=== PATIENT | female | born 1965 | race Caucasian/White ===

== ENCOUNTER 2016-06-10 11:31 | Emergency (ER) | payer MEDICARE, OTHER ==
[~2016-06-10] VITALS: Ht 167.6 cm; Wt 96.0 kg
[~2016-06-10 11:31] MED LIST: ALPR1TAB3 PO; ATEN50TA PO; BUSP30TA PO; CYCL1TAB29 PO; FLUT50SP NASAL; FOLI1TAB4 PO; GABA400C5 PO; HYDR-3516 PO; METH750T; MUPI2OIN; OMEP20CA2 PO; PARO40TA2 PO; TRAZ50TA12 PO; [UNRECOGNIZED DRUG - CODE]
[2016-06-10 11:44] VITALS: PULSE 94; RESP 16; TEMP 99; O2SAT 97
[2016-06-10 12:05] VITALS: BP 126/90
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
--- NOTE | 2016-06-10 12:30 | RADHPO ---
EXAM DATE/TIME: 06/10/2016 12:22 [facility] COMPARISON: KNEE LEFT COMPLETE (4VWS), June 16, 2015, 8:55. INDICATIONS : Left knee pain with no known injury & patient had just had a steriod injection to left knee yesterday . MEDICAL HISTORY : Hypertension. Emphysema. Gastroesophageal reflux disease. Cervical cancer. Arthritis. COPD. Alice l valve prolapse. Tachycardia. SURGICAL HISTORY : Appendectomy. Cholecystectomy. Hysterectomy. Right knee. Open lung biopsy. ENCOUNTER: Initial ACUITY: 2 days PAIN SCORE: 10/10 LOCATION: Left knee FINDINGS: Four view examination of the left knee demonstrates a bony fragment seen posteriorly in the region of the lateral tibial plateau of uncertain etiology. No other fractures are seen. No effusion. Bony mi neralization is normal. CONCLUSION: Mild osteoarthritis with bony fragment seen posteriorly along the lateral tibial plateau. This could be related to fracture of indeterminate age but likely old given no joint effusion. Otf Feng MD on June 10, 2016 at 12:26 Board Certified Radiologist. This report was verified electronically.
[2016-06-10 13:05] VITALS: BP 113/76; PULSE 96; RESP 20; O2SAT 96
--- NOTE | 2016-06-10 13:09 | RADHPO ---
EXAM DATE/TIME: 06/10/2016 12:45 [facility] COMPARISON: US LEG LEFT VENOUS DOPPLER, July 07, 2015, 9:22. INDICATIONS : Left leg pain. MEDICAL HISTORY : Chronic obstructive pulmonary disease. Hypertension. Gastroesophageal reflux disease. Emphysema. S arcoidosis. Arthritis. Cervical cancer. SURGICAL HISTORY : Cholecystectomy. Appendectomy. Total knee replacement, right. Hysterectomy. ENCOUNTER: Initial ACUITY: 4 - 6 days PAIN SCORE: 4/10 LOCATION: Left knee. TECHNIQUE: Venous ultrasound of the leg was performed from the inguinal ligament to the proximal calf. Real-geoffrey e, color Doppler and spectral tracing, compression and augmentation techniques were used. FINDINGS: There is normal compressibility of the deep venous system from the inguinal region to the proximal ca lf. No echogenic clot is seen in the lumen of the common femoral, femoral, popliteal, and posterior tibial veins. There is a normal response of the venous system to proximal and distal augmentation an d respiration. CONCLUSION: No DVT identified within the left lower extremity. Herman Rutledge MD on June 10, 2016 at 13:07 Board Certified Radiologist. This report was verified electronically.
[2016-06-10] MEDS ORDERED: IBUPROFEN 600 MG TAB PO ONE (13:15)
[2016-06-10] MEDS ORDERED: DOXY100C PO (13:46)
[2016-06-10] MEDS ORDERED: DOXYCYCLINE HYCLATE 100 MG TAB PO ONE (14:00)
[2016-06-10] MEDS ORDERED: DOXYCYCLINE HYCLATE 100 MG CAP PO ONE (14:00)
== END 2016-06-10 14:31 | disposition home or self-care (01) ==
LOC: PHED 11:31
DX: M25.562 Pain in left knee (principal); L03.116 Cellulitis of left lower limb; M17.12 Unilateral primary osteoarthritis, left knee; M79.605 Pain in left leg; I10 Essential (primary) hypertension; F17.200 Nicotine dependence, unspecified, uncomplicated
CPT/HCPCS: 73564; 93971

== ENCOUNTER 2016-11-12 14:03 | Emergency (ER) | payer MEDICARE, OTHER ==
[~2016-11-12] VITALS: Ht 167.6 cm; Wt 99.3 kg
[~2016-11-12 14:03] MED LIST changes: -FOLI1TAB4 PO; +FOLI400T PO; -METH750T
[2016-11-12 14:07] VITALS: BP 120/87; PULSE 92; RESP 16; TEMP 98.4; O2SAT 95
[2016-11-12] MEDS ORDERED: SODIUM CHLOR 0.9% 1000 ML INJ 1,000 ML IV ONE (14:31)
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
[2016-11-12] MEDS ORDERED: ONDANSETRON HCL 4 MG/2 ML VIAL IV PUSH ONE (14:45)
[2016-11-12] MEDS ORDERED: HYDROmorphone HCL PF 1 MG/ML VIAL IV PUSH ONE (14:45)
[2016-11-12 15:10] LABS: AUTOMATED NEUTROPHIL # 5.5 TH/MM3 (1.8-7.7); BASOPHIL # 0.1 TH/MM3 (0-0.2); BASOPHIL % 1.5 % (0.0-2.0); EOSINOPHIL # 0.2 TH/MM3 (0-0.4); EOSINOPHIL % 2.4 % (0.0-4.0); HEMATOCRIT 41.5 % (35.0-46.0); HEMO FLAGS DIFF FINAL; LYMPH % 19.1 % (9.0-44.0); LYMPHOCYTE # 1.5 TH/MM3 (1.0-4.8); MEAN CELL VOLUME 105.2 FL (80.0-100.0); MEAN CORPUSCULAR HGB CONC 33.3 % (32.0-36.0); MONO % 6.5 % (0.0-8.0); NEUT % 70.5 % (16.0-70.0); PLATELET COUNT 268 TH/MM3 (150-450); RED BLOOD COUNT 3.94 MIL/MM3 (4.00-5.30); RED CELL DISTRIBUTION WIDTH 15.6 % (11.6-17.2); WHITE BLOOD COUNT 7.8 TH/MM3 (4.0-11.0)
[2016-11-12 15:20] LABS: CHLORIDE 105 MEQ/L (98-107); SODIUM (NA) 141 MEQ/L (136-145)
[2016-11-12 15:25] LABS: POTASSIUM 5.6 MEQ/L (3.5-5.1)
[2016-11-12 15:26] VITALS: O2SAT 97
[2016-11-12 15:27] LABS: ANION GAP 4 MEQ/L (5-15); BICARBONATE 32.5 MEQ/L (21.0-32.0); BLOOD UREA NITROGEN 9 MG/DL (7-18)
[2016-11-12 15:29] LABS: ALT (GPT) 70 U/L (10-53)
[2016-11-12 15:30] LABS: AST (GOT) 62 U/L (15-37); GLOMERULAR FILTRATION RATE 82 ML/MIN (>89)
[2016-11-12 15:31] LABS: TOTAL BILIRUBIN ADULT 0.4 MG/DL (0.2-1.0)
[2016-11-12 15:31] LABS: APTT (PATIENT) 23.9 SEC (24.3-30.1); INTERNATIONAL NORMALIZED RATIO 0.9 RATIO; PROTHROMBIN TIME - PATIENT 9.9 SEC (9.8-11.6)
[2016-11-12 15:32] LABS: ALKALINE PHOSPHATASE 117 U/L (45-117)
[2016-11-12] MEDS ORDERED: diphenhydrAMINE HCL 50 MG/ML VIAL IV PUSH ONE (16:00)
[2016-11-12] MEDS ORDERED: methylPREDNISolone SOD SUCC 125 MG/2 ML VIAL IV PUSH ONE (16:00)
[2016-11-12 16:39] VITALS: BP 101/70; PULSE 74; RESP 18; O2SAT 98
[2016-11-12] MEDS ORDERED: MEDR4PAK PO (17:01)
[2016-11-12] MEDS ORDERED: BENA25TA6 PO (17:01)
== END 2016-11-12 17:10 | disposition home or self-care (01) ==
LOC: PHED 14:03
DX: R21 Rash and other nonspecific skin eruption (principal); L40.50 Arthropathic psoriasis, unspecified; J44.9 Chronic obstructive pulmonary disease, unspecified; I10 Essential (primary) hypertension; E11.9 Type 2 diabetes mellitus without complications; K21.9 Gastro-esophageal reflux disease without esophagitis
CPT/HCPCS: 80053; 83605; 84132; 85025; 85610; 85730; 87040; 96361; 96374; 96375; 99284; J1170; J1200; J2405; J2930; J7030

== ENCOUNTER 2016-12-11 09:56 | Emergency (ER) | payer MEDICARE, MEDICAID ==
[~2016-12-11] VITALS: Ht 167.6 cm; Wt 98.0 kg
[~2016-12-11 09:56] MED LIST changes: +BENA25TA6 PO; +MEDR4PAK PO
[2016-12-11 10:00] VITALS: BP 131/65; PULSE 84; RESP 16; TEMP 98.4; O2SAT 98
[2016-12-11] MEDS ORDERED: SODIUM CHLORIDE 0.9% FLUSH 5 ML FLUSH IV FLUSH PRN (10:30)
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
[2016-12-11 10:35] VITALS: O2SAT 93
[2016-12-11 10:38] LABS: AUTOMATED NEUTROPHIL # 6.1 TH/MM3 (1.8-7.7); BASOPHIL # 0.1 TH/MM3 (0-0.2); BASOPHIL % 1.4 % (0.0-2.0); EOSINOPHIL # 0.1 TH/MM3 (0-0.4); EOSINOPHIL % 1.6 % (0.0-4.0); HEMATOCRIT 40.3 % (35.0-46.0); HEMO FLAGS DIFF FINAL; LYMPHOCYTE # 1.1 TH/MM3 (1.0-4.8); MEAN CELL VOLUME 104.6 FL (80.0-100.0); MEAN CORPUSCULAR HEMOGLOBIN 34.6 PG (27.0-34.0); MEAN CORPUSCULAR HGB CONC 33.1 % (32.0-36.0); MONO % 8.8 % (0.0-8.0); NEUT % 74.2 % (16.0-70.0); PLATELET COUNT 292 TH/MM3 (150-450); RED BLOOD COUNT 3.85 MIL/MM3 (4.00-5.30); RED CELL DISTRIBUTION WIDTH 15.1 % (11.6-17.2); WHITE BLOOD COUNT 8.1 TH/MM3 (4.0-11.0)
[2016-12-11 10:57] LABS: CHLORIDE 109 MEQ/L (98-107); POTASSIUM 4.3 MEQ/L (3.5-5.1); SODIUM (NA) 141 MEQ/L (136-145)
[2016-12-11 11:01] LABS: ANION GAP 6 MEQ/L (5-15); BICARBONATE 26.2 MEQ/L (21.0-32.0); BLOOD UREA NITROGEN 9 MG/DL (7-18)
[2016-12-11 11:04] LABS: GLOMERULAR FILTRATION RATE 95 ML/MIN (>89)
--- NOTE | 2016-12-11 11:23 | RADRPT ---
EXAM DATE/TIME: 12/11/2016 11:03 [facility] COMPARISON: CT PULMONARY ANGIOGRAM, June 06, 2015, 16:26. INDICATIONS : Altered mental status. Frequent falls. RADIATION DOSE: 39.89 CTDIvol (mGy) MEDICAL HISTORY : Diabetes mellitus type 2. Hypertension. Chronic obstructive pulmonary disease. SURGICAL HISTORY : None. ENCOUNTER: Initial ACUITY: 1 week PAIN SCALE: 10/10 LOCATION: Bilateral cranial TECHNIQUE: Multiple contiguous axial images were obtained of the head. Using automated exposure control and adj ustment of the mA and/or kV according to patient size, radiation dose was kept as low as reasonably a chievable to obtain optimal diagnostic quality images. DICOM format image data is available electro nically for review and comparison. FINDINGS: CEREBRUM: The ventricles are normal for age. No evidence of midline shift, mass lesion, hemorrhage or acute in farction. No extra-axial fluid collections are seen. POSTERIOR FOSSA: The cerebellum and brainstem are intact. The 4th ventricle is midline. The cerebellopontine angle i s unremarkable. EXTRACRANIAL: The visualized portion of the orbits is intact. SKULL: The calvaria is intact. No evidence of skull fracture. CONCLUSION: No acute intracranial abnormality identified Herman Rutledge MD on December 11, 2016 at 11:20 Board Certified Radiologist. This report was verified electronically.
[2016-12-11 11:27] VITALS: BP 106/73; PULSE 83; RESP 22; O2SAT 91
[2016-12-11 11:29] LABS: ALCOHOL LESS THAN 3 MG/DL (0-5)
[2016-12-11 11:49] LABS: BLOOD, URINE NEG (NEG); GLUCOSE,URINE NEG (NEG); KETONE, URINE NEG (NEG); NITRITE,URINE NEG (NEG); PH, URINE 5.5 (5.0-8.5)
[2016-12-11 11:55] LABS: METHOD OF COLLECTION CATH
[2016-12-11 11:56] LABS: COMMENT (UR) CULT NOT INDICATED; CULTURE IF INDICATED CULT NOT INDICATED; SQUAMOUS EPITHELIAL CELL URINE 0-5 /hpf (0-5); URINE COLOR YELLOW (YELLW/STRAW); WBC, URINE 0-2 /hpf (0-5)
[2016-12-11 12:17] VITALS: BP 105/78; PULSE 77; RESP 20; O2SAT 91
[2016-12-11] MEDS ORDERED: TYLETAB34 PO (12:44)
== END 2016-12-11 13:02 | disposition home or self-care (01) ==
LOC: PHED 09:56
DX: R41.82 Altered mental status, unspecified (principal); E11.9 Type 2 diabetes mellitus without complications; I10 Essential (primary) hypertension; F17.200 Nicotine dependence, unspecified, uncomplicated; Z91.81 History of falling; Z79.899 Other long term (current) drug therapy; Z87.39 Personal history of other diseases of the musculoskeletal system and connective tissue; Z86.59 Personal history of other mental and behavioral disorders; Z86.79 Personal history of other diseases of the circulatory system; Z85.41 Personal history of malignant neoplasm of cervix uteri; Z87.09 Personal history of other diseases of the respiratory system; Z87.19 Personal history of other diseases of the digestive system
CPT/HCPCS: 70450; 80048; 80307; 81001; 84443; 85025; 99285; P9612

== ENCOUNTER 2017-02-02 14:49 | Emergency (ER) | payer MEDICARE, OTHER ==
[~2017-02-02] VITALS: Ht 167.6 cm; Wt 102.0 kg
[~2017-02-02 14:49] MED LIST changes: -MEDR4PAK PO; -MUPI2OIN; +TYLETAB34 PO
[2017-02-02 15:03] VITALS: BP 131/60; PULSE 104; RESP 18; TEMP 99.3; O2SAT 96
[2017-02-02] MEDS ORDERED: SOMA250T PO (15:31)
[2017-02-02] MEDS ORDERED: IBUPROFEN 600 MG TAB PO ONE (16:00)
--- NOTE | 2017-02-02 16:16 | RADRPT ---
EXAM DATE/TIME: 02/02/2017 15:44 [facility] COMPARISON: CHEST PA & LAT, June 18, 2015, 10:02. CHEST SINGLE AP, June 10, 2015, 17:36. INDICATIONS : Chest pain, short of breath, and cough for several days. Patient fell 3 days ago. MEDICAL HISTORY : Diabetes mellitus type 2. Hypertension. Chronic obstructive pulmonary disease. Chemotherapy. SURGICAL HISTORY : Thoracic fusion. ENCOUNTER: Initial ACUITY: 3 days PAIN SCORE: 6/10 LOCATION: Bilateral chest FINDINGS: Lung bases are hypoaerated. Some minimal atelectasis seen in the left. There is no evidence of consol idating airspace disease. Heart and mediastinal structures are stable. Thoracic fusion rods are in stable position. CONCLUSION: Basilar hypoaeration with mild airspace disease characteristic of atelectasis. No evidence of acute consolidating air space disease. Keven Joiner MD on February 02, 2017 at 16:13 Board Certified Radiologist. This report was verified electronically.
[2017-02-02] MEDS ORDERED: TRAM50TA PO (16:44)
--- NOTE | 2017-02-02 16:44 | RADRPT ---
EXAM DATE/TIME: 02/02/2017 15:44 [facility] COMPARISON: No previous studies available for comparison. INDICATIONS : Right forearm pain since falling 3 days ago. MEDICAL HISTORY : Diabetes mellitus type 2. Hypertension. Chronic obstructive pulmonary disease. Chemotherapy. SURGICAL HISTORY : ENCOUNTER: Initial ACUITY: 3 days PAIN SCORE: 6/10 LOCATION: Right posterior forearm. FINDINGS: Two view examination of the right forearm demonstrates no evidence of fracture or dislocation. Bony mineralization is normal. The soft tissue structures are intact. CONCLUSION: No evidence of acute fracture. Keven Joiner MD on February 02, 2017 at 16:42 Board Certified Radiologist. This report was verified electronically.
--- NOTE | 2017-02-02 16:44 | RADRPT ---
EXAM DATE/TIME: 02/02/2017 15:44 [facility] COMPARISON: ANKLE RIGHT COMPLETE ([id number]), December 05, 2015, 13:36. INDICATIONS : Right ankle pain since falling 3 days ago. MEDICAL HISTORY : Diabetes mellitus type 2. Hypertension. Chronic obstructive pulmonary disease. Chemotherapy. SURGICAL HISTORY : ENCOUNTER: Initial ACUITY: 3 days PAIN SCORE: 6/10 LOCATION: Right ankle. FINDINGS: Three view exam was performed of the right ankle. Significant soft tissue swelling is identified. The bony surfaces are intact without evidence of acute fracture. Ankle mortise is well-maintained. CONCLUSION: Soft tissue swelling without evidence of acute fracture or dislocation. Keven Joiner MD on February 02, 2017 at 16:41 Board Certified Radiologist. This report was verified electronically.
[2017-02-02] MEDS ORDERED: oxyCODONE/ACETAMINOPHEN 5 MG/325 MG TAB PO ONE (16:45)
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
== END 2017-02-02 17:42 | disposition home or self-care (01) ==
LOC: PHEFT 14:49
DX: S40.021A Contusion of right upper arm, initial encounter (principal); W01.0XXA Fall on same level from slipping, tripping and stumbling without subsequent striking against object, initial encounter; M25.571 Pain in right ankle and joints of right foot; J44.9 Chronic obstructive pulmonary disease, unspecified; E11.9 Type 2 diabetes mellitus without complications; K21.9 Gastro-esophageal reflux disease without esophagitis; F17.200 Nicotine dependence, unspecified, uncomplicated; Z79.899 Other long term (current) drug therapy
CPT/HCPCS: 71010; 73090; 73610; 99284

== ENCOUNTER → 2017-02-10 | Day surgery (SDC) | payer MEDICARE, OTHER ==
[~2017-02-10] MED LIST changes: +PROPOFOL 200 MG/20 ML AMP IV ONE; +SOMA250T PO; +TRAM50TA PO; -TYLETAB34 PO
--- NOTE | 2017-02-10 16:11 | GIPROC ---
[facility] [address] [facility], [address] EGD PROCEDURE REPORT EXAM DATE: 02/10/2017 PATIENT NAME: Aiyana Li MR #: [id number] BIRTHDATE: 1965 ATTENDING: Patrica Holt MD ORDER #: [id number] ROLLER STAKER: Kristy Porter RN STATUS: outpatient INDICATIONS: The patient is a 51 yr old female here for an EGD due to melena, bloating abdominal pain PROCEDURE PERFORMED: EGD w/ biopsy MEDICATIONS: None and Per Anesthesia. TOPICAL ANESTHETIC: none CONSENT: The patient understands the risks and benefits of the procedure and understands that these risks include, but are not limited to: sedation, allergic reaction, infection, perforation and/or bleeding. Alternative means of evaluation and treatment include, among others: physical exam, x-rays, and/or surgical intervention. The patient elects to proceed with this endoscopic procedure. medical equipment was checked for proper function. Hand hygiene and appropriate measures for infection prevention was taken. After the risks, benefits and alternatives of the procedure were thoroughly explained, Informed consent was verified, confirmed and timeout was successfully executed by the treatment team. The patient was anesthetized with topical anesthesia and the EC-[id number] ([id number]) endoscope was introduced through the mouth and advanced to the second portion of the duodenum. Retroflexed views revealed a hiatal hernia The gastroscope was then slowly withdrawn and removed. Duodenum normal-biopsy gastritis antrum-biopsy, bile in stomach indicated possible dysmotility esophagitis distal esophagus-biopsy. ADVERSE EVENTS: There were no complications. IMPRESSIONS: 1. Duodenum normal-biopsy gastritis antrum-biopsy, bile in stomach indicated possible dysmotility esophagitis distal esophagus-biopsy 2. Retroflexed views revealed a hiatal hernia RECOMMENDATIONS: 1. Await biopsy results. Biopsy results will not be ready for 7-10 days. If you don't hear from us in two weeks, call our office for biopsy results. 2. Anti-reflux regimen 3. Continue PPI 4. Gastric emptying study trial of Carafate 1 gm po bid probiotics like Align, Culturelle, digestive enzymes fu office 2 weeks PATIENT CONDITION: stable DISPOSITION: Home REPEAT EXAM: Return 1 year EGD Patrica Holt MD eSigned: Patrica Holt MD 02/10/2017 4:10 PM cc: Jaye Carvajal PATIENT NAME: Aiyana Li MR#: [id number]
== END | disposition home or self-care (01) ==
LOC: ESDC 12:06
PROVIDERS: ATTEND Internal Medicine Gastroenterology
DX: K92.1 Melena (principal); R14.0 Abdominal distension (gaseous); R10.9 Unspecified abdominal pain; K44.9 Diaphragmatic hernia without obstruction or gangrene; K29.70 Gastritis, unspecified, without bleeding; K20.9 Esophagitis, unspecified
CPT/HCPCS: 00740; 43239; 88305; 88312; J3010

== ENCOUNTER 2017-05-11 11:38 | Emergency (ER) | payer MEDICARE, OTHER ==
[~2017-05-11] VITALS: Ht 167.6 cm; Wt 92.0 kg
[~2017-05-11 11:38] MED LIST changes: +BACL10TA; +CYCL10TA PO; -CYCL1TAB29 PO; +IPRA0.06; -PROPOFOL 200 MG/20 ML AMP IV ONE; -TRAM50TA PO
[2017-05-11 11:41] VITALS: BP 139/86; PULSE 102; RESP 16; TEMP 98.6; O2SAT 95
[2017-05-11 12:00] VITALS: O2SAT 93
[2017-05-11] MEDS ORDERED: OXYC30TA62 PO (12:11)
[2017-05-11] MEDS ORDERED: SODIUM CHLORIDE 0.9% FLUSH 10 ML FLUSH IVF PRN (12:15)
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
[2017-05-11 12:49] LABS: AUTOMATED NEUTROPHIL # 3.6 TH/MM3 (1.8-7.7); BASOPHIL # 0.1 TH/MM3 (0-0.2); BASOPHIL % 2.6 % (0.0-2.0); EOSINOPHIL # 0.1 TH/MM3 (0-0.4); EOSINOPHIL % 2.4 % (0.0-4.0); HEMATOCRIT 41.7 % (35.0-46.0); HEMOGLOBIN 13.8 GM/DL (11.6-15.3); LYMPH % 20.2 % (9.0-44.0); MEAN CELL VOLUME 97.3 FL (80.0-100.0); MEAN CORPUSCULAR HEMOGLOBIN 32.1 PG (27.0-34.0); MEAN PLATELET VOLUME 6.7 FL (7.0-11.0); MONO % 5.2 % (0.0-8.0); MONOCYTE # 0.3 TH/MM3 (0-0.9); NEUT % 69.6 % (16.0-70.0); PLATELET COUNT 273 TH/MM3 (150-450); RED BLOOD COUNT 4.28 MIL/MM3 (4.00-5.30); RED CELL DISTRIBUTION WIDTH 14.6 % (11.6-17.2); WHITE BLOOD COUNT 5.1 TH/MM3 (4.0-11.0)
--- NOTE | 2017-05-11 12:52 | RADRPT ---
EXAM DATE/TIME: 05/11/2017 12:17 [facility] COMPARISON: CHEST PA & LAT, August 07, 2015, 19:25. INDICATIONS : Right chest pain. Short of breath for 3 weeks. MEDICAL HISTORY : Diabetes mellitus type 2. Hypertension. Chronic obstructive pulmonary disease. SURGICAL HISTORY : None. ENCOUNTER: Initial ACUITY: 3 weeks PAIN SCORE: 2/10 LOCATION: Bilateral chest FINDINGS: PA and lateral views of the chest were obtained and demonstrate areas of chronic scarring and postsur gical change in the right upper lobe. There are no new confluent infiltrates or effusions. Bilateral interstitial prominence remains which could indicate underlying scarring or fibrosis. The heart size remains at the upper limits of normal. There stable postoperative changes involving the thoracic spin e. There is no pneumothorax. CONCLUSION: 1. Bilateral interstitial prominence again noted which could indicate fibrosis and/or scarring. 2. Scarring and postsurgical change in the right upper lobe. Genaro Aldrich MD on May 11, 2017 at 12:47 Board Certified Radiologist. This report was verified electronically.
[2017-05-11 12:57] LABS: CHLORIDE 101 MEQ/L (98-107); SODIUM (NA) 134 MEQ/L (136-145)
[2017-05-11 13:01] LABS: INTERNATIONAL NORMALIZED RATIO 1.1 RATIO; PROTHROMBIN TIME - PATIENT 10.8 SEC (9.8-11.6)
[2017-05-11 13:02] LABS: ALBUMIN 3.3 GM/DL (3.4-5.0); BICARBONATE 25.2 MEQ/L (21.0-32.0); BLOOD UREA NITROGEN 9 MG/DL (7-18); CALCIUM 8.6 MG/DL (8.5-10.1); GLUCOSE,RANDOM 83 MG/DL (74-106)
[2017-05-11 13:04] LABS: AST (GOT) 22 U/L (15-37)
[2017-05-11 13:05] LABS: ALT (GPT) 29 U/L (10-53); CREATININE 0.64 MG/DL (0.50-1.00); GLOMERULAR FILTRATION RATE 97 ML/MIN (>89)
[2017-05-11 13:06] LABS: TOTAL BILIRUBIN ADULT 0.5 MG/DL (0.2-1.0); TOTAL PROTEIN 7.2 GM/DL (6.4-8.2)
[2017-05-11 13:07] LABS: ALKALINE PHOSPHATASE 137 U/L (45-117); TROPONIN I LESS THAN 0.02 NG/ML (0.02-0.05)
[2017-05-11] MEDS ORDERED: KETOROLAC TROMETHAMINE 30 MG/ML (IVP) VIAL IV PUSH ONE (13:15)
--- NOTE | 2017-05-12 10:49 | EKG ---
Date Performed: 05/11/2017 Time Performed: 12:14:52 PTAGE: 51 years EKG: Sinus rhythm MODERATE T-WAVE ABNORMALITY, CONSIDER ANTERIOR ISCHEMIA ABNORMAL ECG PREVIOUS TRACING : 05/22/2015 16.51 DOCTOR: Edouard Amador Interpretating Date/Time 05/12/2017 10:47:41
== END 2017-05-11 13:46 | disposition home or self-care (01) ==
LOC: PHED 11:38
DX: R07.89 Other chest pain (principal); R94.31 Abnormal electrocardiogram [ECG] [EKG]; G89.29 Other chronic pain; J44.9 Chronic obstructive pulmonary disease, unspecified; K21.9 Gastro-esophageal reflux disease without esophagitis; I10 Essential (primary) hypertension; F32.9 Major depressive disorder, single episode, unspecified
CPT/HCPCS: 71046; 80053; 82550; 83880; 84484; 85025; 85610; 85730; 93005; 96374; 99285; J1885

== ENCOUNTER → 2017-09-07 | Outpatient (CLI) | payer MEDICARE, OTHER ==
[~2017-09-07] MED LIST changes: -BACL10TA; -HYDR-3516 PO; +OXYC30TA62 PO; -SOMA250T PO
--- NOTE | 2017-09-07 14:41 | RADRPT ---
EXAM DATE/TIME: 09/07/2017 14:16 [facility] COMPARISON: No previous studies available for comparison. INDICATIONS : Difficulty swallowing. FLUORO TIME: 1.5 minutes IMAGE COUNT: 0 CONTRAST: Dose as prescribed by speech pathologist. MEDICAL HISTORY : Hiatal hernia. SURGICAL HISTORY : None. Diabetes mellitus type 2. Hypertension. Chronic obstructive pulmonary ENCOUNTER: Initial ACUITY: 2 weeks PAIN SCORE: 0/10 LOCATION: Esophagus FINDINGS: A modified barium swallow was performed with speech pathology. Patient was given a variety of liquids to swallow. No evidence for aspiration. For a full detailed report, see report by the speech pathologist. CONCLUSION: Normal examination. Tu Granger MD on September 07, 2017 at 14:38 Board Certified Radiologist. This report was verified electronically.
== END ==
LOC: HRAD 14:09
PROVIDERS: ATTEND Nurse Practitioner
DX: R13.10 Dysphagia, unspecified (principal)
CPT/HCPCS: 74230; 92611; G8996; G8997; G8998

== ENCOUNTER 2018-01-10 05:44 | Inpatient (IN) ==
[2018-01-10] MEDS ORDERED: MethylPREDNISolone Sod Succinate Inj 125 MG/2 ML Vial IV.PUSH ONE (05:47)
[2018-01-10] MEDS ORDERED: Ketorolac Inj 30 MG/ML (IVP) Vial IV.PUSH ONE (05:47)
--- NOTE | 2018-01-10 06:21 | XR ---
EXAM DATE: 01/10/2018 6:16 AM EDT AGE/SEX: 52 years / Female INDICATIONS: Right posterior rib pain after falling 1 week ago. CLINICAL DATA: This is the patient's initial encounter. Patient reports that signs and symptoms have been present for 1 week and indicates a pain score of 5/10. MEDICAL/SURGICAL HISTORY: None. None. COMPARISON: [facility], XR CHEST PA AND LAT, 05/29/2017. . FINDINGS: There has been previous thoracic spinal hardware fixation. There are multiple staple lines present in the right lung consistent with previous right lung surgery. Mild interstitial prominence. Slight carlos nting of the costophrenic angles bilaterally. No evidence of pneumothorax. No definite displaced rib fracture. CONCLUSION: Interstitial prominence and probable small bilateral effusions. No evidence of rib fracture Electronically signed by: Jose Taylor MD 01/10/2018 6:20 AM EDT
[2018-01-10] MEDS ORDERED: Azithromycin Inj 500 MG in Sodium Chlor 0.9% Inj 250 ML IV.SIG ONE (06:25)
--- NOTE | 2018-01-10 06:25 | ED ---
HPI General Chief complaint: Respiratory Symptoms Stated complaint: Sob/back pain Time Seen by Provider: 01/10/18 05:46 Source: patient and EMS Mode of arrival: EMS Limitations: no limitations History of Present Illness HPI narrative: Patient is a 52-year-old female brought in by EMS due to right lower rib pain as well as shortness of breath with a cough. She says that a week ago she lost her balance and fell, hitting her right lower back. She says she has had pain ever since. She also has had a cough for the past week. She reports fever on and off for the past several months. She denies taking anything for her pain, however she is prescribed oxycodone's for chronic pain. She denies nausea or vomiting. She denies she says she came in to make sure she did not have a broken rib. Severity is moderate. Related Data Home Medications Medication Instructions Recorded Confirmed atenolol 50 mg PO DAILY 01/10/18 01/10/18 buspirone 30 mg PO BID 01/10/18 01/10/18 clonazepam 1 mg PO TID 01/10/18 01/10/18 folic acid 1 mg PO DAILY 01/10/18 01/10/18 gabapentin 400 mg PO TID 01/10/18 01/10/18 oxycodone [OxyContin] 60 mg PO Q12H 01/10/18 01/10/18 paroxetine HCl 40 mg PO DAILY 01/10/18 01/10/18 trazodone 100 mg PO DAILY 01/10/18 01/10/18 Allergies Allergy/AdvReac Type Severity Reaction Status Date / Time metoclopramide Allergy Severe Rash Verified 01/10/18 05:56 butorphanol AdvReac Severe NEUROLOGICAL Verified 01/10/18 05:56 EFFECTS quetiapine AdvReac Severe Confusion Verified 01/10/18 05:56 Review of Systems ROS: all other systems reviewed are negative Constitutional Reports fever(s) ENT Denies dizziness Cardiovascular Denies chest pain Respiratory Reports cough and Reports dyspnea Gastrointestinal Denies abdominal pain, Denies nausea and Denies vomiting Musculoskeletal Reports back pain Integumentary/Breasts Denies rash and Denies wounds Neurologic Denies focal weakness and Denies numbness PMFSH Medical History Medical History Arthritis (Acute) Chronic pain (Acute) Emphysema of lung (Acute) Дмитрий Hernandez infection (Acute) Family history of cholecystectomy (Acute) Fracture, cervical vertebra (Acute) Frequent falls (Acute) Hemothorax (Acute) History of anxiety (Acute) History of chronic back pain (Acute) History of chronic obstructive airway disease (Acute) History of histiocytosis (Acute) History of hysterectomy (Acute) Major depressive disorder (Acute) Polysubstance abuse (Acute) Suicide attempt (Acute) Tachycardia (Acute) Thoracic spine fracture (Acute) Type 2 diabetes mellitus (Acute) Surgical History Surgical History H/O right knee surgery (Acute) History of appendectomy (Acute) History of back surgery (Acute) Hx of laparoscopy (Acute) Family History Family History Other Family history non-contributory Social History Social History Substance History: No History of Abuse Second Hand Smoke Exposure: No Smoking Status: Current every day smoker Tobacco Type: Cigarettes How Often Do You Have a Drink Containing Alcohol: Never Recent Travel in [facility] within the Last 8 Weeks: No Recent Out of Country Travel within the Last 8 Weeks: No Immunization History Tetanus Immunization: Unsure Hx Influenza Vaccine This Season: No Exam Narrative Exam Narrative: GENERAL: Awake and alert, in no acute distress. SKIN: Focused skin assessment warm/dry. HEAD: Atraumatic. Normocephalic. EYES: Pupils equal and round. No scleral icterus. ENT: Mucous membranes pink and moist. NECK: Trachea midline. No JVD. CARDIOVASCULAR: Regular rate and rhythm. No murmur appreciated. RESPIRATORY: No accessory muscle use. Clear to auscultation. Breath sounds equal bilaterally. GASTROINTESTINAL: Abdomen soft, non-tender, nondistended. MUSCULOSKELETAL: No obvious deformities. No clubbing. No cyanosis. No edema. Tender to palpation of the right lower posterior ribs. NEUROLOGICAL: Awake and alert. No obvious cranial nerve deficits. Motor grossly within normal limits. Normal speech. PSYCHIATRIC: Appropriate mood and affect; insight and judgment normal. Course Initial Documented Vital Signs Temperature 101.1 F H 01/10/18 05:58 Pulse Rate 95 H 01/10/18 05:58 Respiratory Rate 20 01/10/18 05:58 Blood Pressure 103/60 01/10/18 05:58 Pulse Oximetry 93 L 01/10/18 05:58 Last Documented Vital Signs Temperature 98.1 F 01/10/18 16:12 Pulse Rate 60 01/10/18 17:00 Respiratory Rate 22 01/10/18 17:00 Blood Pressure 119/71 01/10/18 17:00 Pulse Oximetry 97 01/10/18 17:00 Sign Out Sign Out Data: Patient Sign Out occurred on 01/10/18 at 06:55. Patient's care was discussed, and care was transferred from Sania Hunter MD to Olayinka Shafer. Sign Out Comment: Follow up blood work and disposition the patient. Last updated by Sania Hunter MD at 01/10/18 06:47 Medical Decision Making MDM Narrative Medical decision making narrative: Patient is a 52-year-old female who comes in complaining of right sided rib pain as well as a cough and shortness of breath. Exam shows tenderness to palpation of the ribs. IV established, labs sent. X-ray of the ribs and chest performed. Given IV fluids, Toradol, Solu- Medrol.Given a dose of Rocephin and azithromycin. [place]: persistent hypoxemia despite 3L, pulse ox with excellent pleth wave shows 84%, increase to 4L nc improved pulse ox to 93%....still suspect pneumonia, but will obtain ct PE due to hypoxemia, and obtain abg for evaluation of A-a gradient...patient has a deep, cough, sounds quite productive but patient is not coughing up any phlegm, per patient not oxygen dependant. No leukocytosis, normal hemoglobin, left shift neutrophilia 86% with slight macrocytosis 100.7 ABG on 3-1/2 L showed saturation of 88% pH of 7.41/PCO2 43/PaO2 of 63 Electrolytes are all within normal limits, normal kidney liver functions, first set of cardiac enzymes negative, normal lactic acid of 0.8. Medical Screen Exam Complete: Yes Emergency Medical Condition: Yes Differential Diagnosis Differential Diagnosis: Pneumonia versus COPD exacerbation versus sepsis versus rib fracture Medical Records Medical records reviewed: Yes I reviewed the patient's medical records. Lab Data Result diagrams: 01/10/18 06:30 01/10/18 06:30 Lab Results 01/10/18 01/10/18 01/10/18 Range/Units 06:30 06:30 06:30 CBC w Diff Auto diff final WBC 7.9 (4.0-11.0) th/mm3 RBC 3.56 L (4.00-5.30) mil/mm3 Hgb 11.9 (11.6-15.3) gm/dL Hct 35.9 (35.0-46.0) % MCV 100.7 H (80.0-100.0) fL MCH 33.3 (27.0-34.0) pg MCHC 33.0 (32.0-36.0) % RDW 13.0 (11.6-17.2) % Plt Count 190 (150-450) th/mm3 MPV 7.0 (7.0-11.0) fL Neut % (Auto) 85.5 H (16.0-70.0) % Lymph % (Auto) 9.3 (9.0-44.0) % [place]shaw % (Auto) 4.3 (0.0-8.0) % Eos % (Auto) 0.5 (0.0-4.0) % Baso % (Auto) 0.4 (0.0-2.0) % Neut # (Auto) 6.9 (1.8-7.7) th/mm3 Lymph # (Auto) 0.7 L (1.0-4.8) th/mm3 [place]shaw # (Auto) 0.3 (0.0-0.9) th/mm3 Eos # (Auto) 0.0 (0.0-0.4) th/mm3 Baso # (Auto) 0.0 (0.0-0.2) th/mm3 WBC Differential . Differential Comment . Puncture Site Patient Temperature O2 Saturation (90-100) % ABG pH (7.380-7.420) ABG pCO2 (38-42) mmHg ABG pO2 (61-120) mmHg ABG HCO3 (22-26) mmol/L ABG O2 Content (12.0-20.0) Vol % ABG Base Excess (-2-2) mmol/L ABG Methemoglobin (0-2) % Dion Test Hemoglobin (12.0-16.0) G/DL Carboxyhemoglobin (0-4) % O2 Delivery Device Liter Flow L/M Critical Value Sodium 134 L (136-145) meq/L Potassium 3.8 (3.5-5.1) meq/L Chloride 99 (98-107) meq/L Carbon Dioxide 26.5 (21.0-32.0) meq/L Anion Gap 9 (5-15) meq/L BUN 12 (7-18) mg/dL Creatinine 0.72 (0.50-1.00) mg/dL Estimated GFR 84 L (>89) mL/min Random Glucose 112 H (74-106) mg/dL Lactic Acid 0.8 (0.4-2.0) mmol/L Calcium 8.0 L (8.5-10.1) mg/dL Total Bilirubin 1.0 (0.2-1.0) mg/dL AST 26 (15-37) U/L ALT 32 (10-53) U/L Alkaline Phosphatase 86 (45-117) U/L Troponin I Less than 0.02 L (0.02-0.05) ng/mL Total Protein 6.7 (6.4-8.2) g/dL Albumin 3.2 L (3.4-5.0) g/dL Urine Color (Yellw/Straw) Urine Clarity (Clear) Urine pH (5.0-8.5) Ur Specific [place] (1.002-1.035) Urine Protein (Neg-Trace) mg/dL Urine Glucose (UA) (Negative) mg/dL Urine Ketones (Negative) mg/dL Urine Occult Blood (Negative) Urine Nitrate (Negative) Urine Bilirubin (Negative) Urine Urobilinogen (Less than 2) mg/dL Ur Leukocyte Esterase (Negative) Urine WBC (0-5) /hpf Ur Squamous Epith Cells (0-5) /hpf Urine Bacteria (None) /hpf Urine Mucus (Occasional) /lpf Micro UA Comment Ur Microscopic Review Urine Culture Comments 01/10/18 01/10/18 Range/Units 07:10 18:00 CBC w Diff WBC (4.0-11.0) th/mm3 RBC (4.00-5.30) mil/mm3 Hgb (11.6-15.3) gm/dL Hct (35.0-46.0) % MCV (80.0-100.0) fL MCH (27.0-34.0) pg MCHC (32.0-36.0) % RDW (11.6-17.2) % Plt Count (150-450) th/mm3 MPV (7.0-11.0) fL Neut % (Auto) (16.0-70.0) % Lymph % (Auto) (9.0-44.0) % [place]shaw % (Auto) (0.0-8.0) % Eos % (Auto) (0.0-4.0) % Baso % (Auto) (0.0-2.0) % Neut # (Auto) (1.8-7.7) th/mm3 Lymph # (Auto) (1.0-4.8) th/mm3 [place] # (Auto) (0.0-0.9) th/mm3 Eos # (Auto) (0.0-0.4) th/mm3 Baso # (Auto) (0.0-0.2) th/mm3 WBC Differential Differential Comment Puncture Site Right radial Patient Temperature 98.6 O2 Saturation 88 L* (90-100) % ABG pH 7.41 (7.380-7.420) ABG pCO2 43 H (38-42) mmHg ABG pO2 63 (61-120) mmHg ABG HCO3 27 H (22-26) mmol/L ABG O2 Content 14.8 (12.0-20.0) Vol % ABG Base Excess 2.9 H (-2-2) mmol/L ABG Methemoglobin 1.4 (0-2) % Dion Test Present Hemoglobin 12.0 (12.0-16.0) G/DL Carboxyhemoglobin 4.5 H (0-4) % O2 Delivery Device Nasal cannula Liter Flow 3.50 L/M Critical Value Yes Sodium (136-145) meq/L Potassium (3.5-5.1) meq/L Chloride (98-107) meq/L Carbon Dioxide (21.0-32.0) meq/L Anion Gap (5-15) meq/L BUN (7-18) mg/dL Creatinine (0.50-1.00) mg/dL Estimated GFR (>89) mL/min Random Glucose (74-106) mg/dL Lactic Acid (0.4-2.0) mmol/L Calcium (8.5-10.1) mg/dL Total Bilirubin (0.2-1.0) mg/dL AST (15-37) U/L ALT (10-53) U/L Alkaline Phosphatase (45-117) U/L Troponin I (0.02-0.05) ng/mL Total Protein (6.4-8.2) g/dL Albumin (3.4-5.0) g/dL Urine Color Yellow (Yellw/Straw) Urine Clarity Clear (Clear) Urine pH 6.0 (5.0-8.5) Ur Specific [place] 1.010 (1.002-1.035) Urine Protein Negative (Neg-Trace) mg/dL Urine Glucose (UA) Negative (Negative) mg/dL Urine Ketones Trace H (Negative) mg/dL Urine Occult Blood Negative (Negative) Urine Nitrate Negative (Negative) Urine Bilirubin Negative (Negative) Urine Urobilinogen 1.0 (Less than 2) mg/dL Ur Leukocyte Esterase Negative (Negative) Urine WBC 0-5 (0-5) /hpf Ur Squamous Epith Cells 0-5 (0-5) /hpf Urine Bacteria Rare H (None) /hpf Urine Mucus Few H (Occasional) /lpf Micro UA Comment Culture not ind Ur Microscopic Review Microscopic reviewed Urine Culture Comments Culture not ind Imaging Data Radiologist's impression: Ribs X-Ray 01/10/18 05:47 CONCLUSION: Interstitial prominence and probable small bilateral effusions. No evidence of rib fracture Chest CTA 01/10/18 06:58 CONCLUSION: Examination of the pulmonary vasculature demonstrates good filling of the main, lobar and segmental branches. There are no filling defects to suggest pulmonary embolism. Multiplanar reconstructions are also unremarkable. Bronchiectasis left lower lobe with probable inflammatory nodule left base. Followup CT scan in 6 months is recommended. ECG Data EKG Prior to Arrival: No Attestation: I personally reviewed and interpreted this ECG as follows: Prior ECG tracings: not available for review Interpretation: EKG shows normal sinus rhythm, 80, left atrial enlargement, nonspecific ST-T wave changes but without any ST elevation AL pattern. Discharge Plan Discharge Disposition Patient Disposition: 30 Still Patient Discharge Condition Condition: Stable Discharge Details Diagnosis: Pneumonia Physicians Team ED Provider: Olayinka Shafer Primary Care Provider: Tiera Mckinnon Attending Provider: Brenda Calabrese Discharge Interventions Interventions: ED Discharge Assessment Last Done: 01/10/18 09:34 Vital Signs Last Done: 01/10/18 08:42 Status ED Status: Left Department Discharge Information Discharge Date/Time: 01/10/18 09:35
[2018-01-10] MEDS: Sod Chloride 0.9% Inj 1,000 ML IV.SIG SCH (06:33)
[2018-01-10 06:49] LABS: Baso % (Auto) 0.4 % (0.0-2.0); Eos % (Auto) 0.5 % (0.0-4.0); Hematocrit 35.9 % (35.0-46.0); Hemoglobin 11.9 gm/dL (11.6-15.3); Lymph # (Auto) 0.7 th/mm3 (1.0-4.8); Lymph % (Auto) 9.3 % (9.0-44.0); Mean Corpuscular Hemoglobin 33.3 pg (27.0-34.0); Mean Corpuscular Volume 100.7 fL (80.0-100.0); Mono # (Auto) 0.3 th/mm3 (0.0-0.9); Mono % (Auto) 4.3 % (0.0-8.0); Neut # (Auto) 6.9 th/mm3 (1.8-7.7); Neut % (Auto) 85.5 % (16.0-70.0); Platelet Count 190 th/mm3 (150-450); Red Blood Count 3.56 mil/mm3 (4.00-5.30); White Blood Count 7.9 th/mm3 (4.0-11.0)
[2018-01-10 07:00] LABS: Chloride 99 meq/L (98-107); Potassium 3.8 meq/L (3.5-5.1); Sodium 134 meq/L (136-145)
[2018-01-10 07:03] LABS: Albumin 3.2 g/dL (3.4-5.0); Anion Gap 9 meq/L (5-15); Blood Urea Nitrogen 12 mg/dL (7-18); Carbon Dioxide 26.5 meq/L (21.0-32.0)
[2018-01-10 07:06] LABS: Aspartate Aminotransferase 26 U/L (15-37); Glomerular Filtration Rate 84 mL/min (>89)
[2018-01-10 07:08] LABS: Total Protein 6.7 g/dL (6.4-8.2)
[2018-01-10 07:18] LABS: Glucose,Random 112 mg/dL (74-106)
[2018-01-10 07:20] LABS: Alanine Aminotransferase 32 U/L (10-53)
[2018-01-10 07:21] LABS: ABG Base Excess 2.9 mmol/L (-2-2); ABG PCO2 43 mmHg (38-42); ABG PO2 63 mmHg (61-120)
[2018-01-10 07:24] LABS: Alkaline Phosphatase 86 U/L (45-117)
--- NOTE | 2018-01-10 07:56 | CT ---
EXAM DATE: 01/10/2018 7:43 AM EDT AGE/SEX: 52 years / Female INDICATIONS: Shortness of breath with cough. Fall one week ago. CLINICAL DATA: This is the patient's initial encounter. Patient reports that signs and symptoms have been present for 1 day and indicates a pain score of 6/10. MEDICAL/SURGICAL HISTORY: Chronic obstructive pulmonary disease. Diabetes. Appendectomy. Hysterec hazel. Back surgery. RADIATION DOSE: 18.73 CTDI (mGy) COMPARISON: No prior exams available for comparison. TECHNIQUE: Volumetric scanning was performed using a multi-row detector CT scanner during bolus infu gopal of 65 ml Omnipaque 350 (iohexol) nonionic water-soluble contrast as a single exam dose. The gali a was post processed with a variety of visualization algorithms including full volume maximum intensi ty projection and sliding thin slab reformation. Using automated exposure control and adjustment of the mA and/or kV according to patient size, radiation dose was kept as low as reasonably achievable t o obtain optimal diagnostic quality images. DICOM format image data is available electronically for review and comparison. FINDINGS: Examination of the pulmonary vasculature demonstrates good filling of the main, lobar and segmental b ranches. There are no filling defects to suggest pulmonary embolism. Multiplanar reconstructions are also unremarkable. There are paraseptal emphysematous changes in both upper lobes with diffuse centrilobular emphysema. There is bronchiectasis in the left lower lobe with probable inflammatory changes laterally in the le ft base though this is new when compared to the prior study. There is a nodular density containing ai r bronchograms likely inflammatory measuring 1.[address] scan in 6 months is recommended. Th ere are postsurgical changes in the right lower lobe. Examination of the mediastinum demonstrates no abnormally enlarged lymph nodes by CT criteria. No axillary or hilar abnormalities are identified. Co ronary artery calcifications are not present. The spleen is upper limits of normal in size. CONCLUSION: Examination of the pulmonary vasculature demonstrates good filling of the main, lobar and segmental b ranches. There are no filling defects to suggest pulmonary embolism. Multiplanar reconstructions are also unremarkable. Bronchiectasis left lower lobe with probable inflammatory nodule left base. Followup CT scan in 6 mo nths is recommended. Electronically signed by: Zhang Melchor MD 01/10/2018 7:54 AM EDT
[2018-01-10] MEDS ORDERED: Sod Chloride 0.9% Inj 1,000 ML IV.SIG ONE ×2 (08:49)
[2018-01-10] MEDS ORDERED: Bisacodyl 10 MG Supp RECTAL PRN (09:20)
--- NOTE | 2018-01-10 11:59 | P.HP ---
History of Present Illness Service: medicine Primary Care Physician: Tiera Mckinnon History of Present Illness: This is a 52-year-old female past medical history of COPD and chronic pain syndrome secondary to psoriatic arthritis who presented with shortness of breathing. Patient stated that she fell on her right ribs 2 weeks ago. She stated that about 1 week ago she started having shortness of breathing along with a dry cough. Later the cough turned into a productive cough described as clear, yellowish and greenish sputum. Patient stated that over the week she has got very fatigued so she came here. In the emergency department she was found to be hypoxic and requiring 4 L of oxygen. When I saw patient at the bedside she only was on 2 L of oxygen. Patient is not on any home oxygen. She continued to smoke tobacco 1 pack per day for about 20+ years. She has no other complaints. She was asking to go home. Inpatient Certification: I certify that the inpatient services were ordered in accordance with Medicare regulations governing the order. This includes certification that hospital inpatient services are reasonable and necessary and in the case of services not specified as inpatient-only under 42 CFR 419.22(n), that they are appropriately provided as inpatient services in accordance to with the 2-midnight benchmark under 43 CFR 412.3(e) Estimated Total Length of Stay (Days): 5 Plans for Post Hospital Care: Home Review of Systems Constitutional: Reports fatigue, Reports lack of energy, Denies anorexia, Denies body ache(s), Denies chills, Denies daytime sleepiness, Denies excessive sweating, Denies fever(s), Denies headache(s), Denies increased appetite, Denies malaise, Denies night sweats, Denies weakness, Denies weight gain, Denies weight loss, Denies other Eyes: Denies blind spots, Denies blurry vision, Denies bulging eyes, Denies change in vision, Denies double vision, Denies discharge, Denies dry eyes, Denies floaters, Denies irritation, Denies itchy eyes, Denies loss of vision, Denies pain, Denies requires corrective lenses, Denies sensitivity to light, Denies other Ears, Nose, Mouth, and Throat: Denies abnormal hearing, Denies bleeding gums, Denies bad breath, Denies change in voice, Denies dental pain, Denies difficulty swallowing, Denies dizziness, Denies dry mouth, Denies ear discharge , Denies ear pain, Denies facial pain, Denies headache(s), Denies hearing loss, Denies hoarseness, Denies lip swelling, Denies nosebleed, Denies mouth lesions, Denies mouth pain, Denies nasal congestion, Denies nasal discharge, Denies nasal obstruction, Denies nasal trauma, Denies neck lump, Denies neck pain, Denies nose pain, Denies pain with swallowing, Denies poor balance, Denies post nasal drip, Denies ringing in the ears, Denies sinus pain, Denies sinus pressure , Denies sore throat, Denies throat swelling, Denies tongue swelling, Denies other Cardiovascular: Denies chest pain, Denies chest pain at rest, Denies chest pain with activity, Denies excessive sweating, Denies fainting, Denies fast heart rate, Denies foot swelling, Denies generalized swelling, Denies irregular heart rhythm, Denies leg pain with activity, Denies leg sores, Denies leg swelling, Denies lightheadedness, Denies radiating jaw, neck or arm pain, Denies rapid, pounding, or irregular heartbeat, Denies shortness of breath, Denies shortness of breath with activity, Denies shortness of breath when lying down, Denies shortness of breath causing sudden awakening, Denies slow heart rate, Denies other Respiratory: Reports cough, Reports shortness of breath, Denies change in phlegm color, Denies chest congestion, Denies coughing up blood, Denies excessive phlegm production, Denies pain on inspiration, Denies pain with cough , Denies shortness of breath with activity, Denies snoring, Denies stridor, Denies wheezing, Denies other Gastrointestinal: Denies abdominal pain, Denies belching, Denies black, tarry stools, Denies bloating, Denies bright, red blood in stools, Denies change in bowel habits, Denies constant urge to pass stool, Denies change in stools, Denies coffee ground vomit, Denies constipation, Denies cramping, Denies difficulty swallowing, Denies excessive passing of gas, Denies feeling full early, Denies heartburn, Denies incontinent of stools, Denies loose stools, Denies nausea, Denies pain with swallowing, Denies vomiting, Denies vomiting blood, Denies other Genitourinary: Denies abnormal periods, Denies abnormal vaginal bleeding, Denies absent period, Denies bleeding between periods, Denies blood in urine, Denies difficulty starting urination, Denies difficulty urinating, Denies dribbling after urination, Denies frequent nighttime urination, Denies genital itching, Denies genital lesions, Denies heavy periods, Denies hot flashes, Denies light periods, Denies nipple discharge, Denies painful intercourse, Denies painful periods, Denies painful urination, Denies pelvic pain, Denies prolapse symptoms, Denies sexual problems, Denies side pain, Denies urinary incontinence, Denies urinary urgency, Denies vaginal discharge, Denies vaginal dryness, Denies vaginal odor, Denies vaginal itching, Denies other Musculoskeletal: Denies abnormal walking, Denies back pain, Denies body aches, Denies decreased muscle mass, Denies deformity, Denies joint pain, Denies joint swelling, Denies limited joint movement, Denies loss of height, Denies muscle cramps, Denies muscle weakness, Denies neck pain, Denies numbness, Denies radiating pain into limb, Denies stiffness, Denies tingling, Denies other Skin/Breast: Denies acne, Denies bleeding lesions, Denies boil, Denies breast swelling, Denies breast skin changes, Denies breast pain, Denies breast lump, Denies change in breast shape, Denies change in hair, Denies change in skin color, Denies changing lesions, Denies dry skin, Denies excessive hair growth, Denies hair loss, Denies itching, Denies lesions, Denies nail changes, Denies new lesions, Denies nipple discharge, Denies non-healing lesions, Denies redness , Denies sensitivity to light, Denies rash, Denies skin pain, Denies skin ulcer , Denies sores, Denies stretch jorgensen, Denies unusual bruising, Denies wounds, Denies yellowing of the skin, Denies other Neurologic: Denies abnormal hearing, Denies abnormal movements, Denies abnormal speech, Denies abnormal walking, Denies behavioral changes, Denies burning sensations, Denies confusion, Denies dizziness, Denies fainting, Denies frequent falls, Denies headache(s), Denies lack of coordination, Denies localized weakness, Denies loss of vision, Denies memory loss, Denies numbness, Denies other visual disturbances, Denies radiating pain, Denies restless legs, Denies convulsions, Denies seizure-like activity, Denies sensory deficit, Denies tingling, Denies tingling/numbness/burning sensations, Denies tremor(s), Denies unsteadiness, Denies weakness, Denies other Psychiatric: Denies abnormal sleep pattern, Denies anxiety, Denies behavioral changes, Denies change in appetite, Denies change in sex drive, Denies confusion , Denies depression, Denies difficulty concentrating, Denies hearing things others do not hear, Denies hopelessness, Denies irritability, Denies lack of enjoyment, Denies memory loss, Denies mood swings, Denies panic attacks, Denies paranoia, Denies seeing things others do not see, Denies sensing things others do not sense, Denies tactile hallucinations, Denies thoughts of hurting/killing others, Denies thoughts of hurting/killing yourself, Denies other Endocrine: Denies cold intolerance, Denies excessive sweating, Denies flushing, Denies heat intolerance, Denies increased hunger, Denies increased thirst, Denies increased urination, Denies rapid, pounding, or irregular heartbeat, Denies other Hematologic/Lymphatic: Denies easy bleeding, Denies easy bruising, Denies enlarged lymph nodes, Denies other Allergic/Immunologic: Denies GI upset with certain foods, Denies hives, Denies itchy eyes, Denies lip swelling, Denies seasonal runny nose, Denies throat swelling, Denies tongue swelling, Denies wheezing, Denies other PMFSH - History History Provided By: Patient, Family Member - Medical History Medical History: Medical History (Last Updated 01/10/18 @ 06:23 by Toshia Farrar RN) Arthritis Chronic pain Emphysema of lung Дмитрий Hernandez infection Family history of cholecystectomy Fracture, cervical vertebra Frequent falls Hemothorax History of anxiety History of chronic back pain History of chronic obstructive airway disease History of histiocytosis History of hysterectomy Major depressive disorder Polysubstance abuse Suicide attempt Tachycardia Thoracic spine fracture Type 2 diabetes mellitus - Surgical History Surgical History: Surgical History (Last Reviewed 01/10/18 @ 06:23 by Sania Hunter MD) H/O right knee surgery History of appendectomy History of back surgery Hx of laparoscopy - Family History Family History: Family History (Last Updated 01/10/18 @ 11:56 by Brenda Calabrese MD) Other Family history non-contributory - Tobacco History Second Hand Smoke Exposure: No Tobacco Use In Past 30 Days: Yes Smoking Status: Current every day smoker Tobacco Type: Cigarettes - Alcohol History How Often Do You Have a Drink Containing Alcohol: Never - Substance Use History Substance History: No History of Abuse - Travel History Recent Travel in the [place] Within the Last 8 Weeks: No Recent Travel Out of the Country Within the Last 8 Weeks: No - Immunization History Tetanus Immunization: Unsure Hx Influenza Vaccine This Season: No Medications and Allergies Active Medications: Active Medications Al Hydroxide/Mg Hydroxide (Milk Of Magnesia Liq) 30 ml PO Q12H PRN PRN Reason: Mild Constipation Bisacodyl (Dulcolax Supp) 10 mg RECTAL DAILY PRN PRN Reason: SEVERE CONSITIPATION Sodium Chloride (Ns Inj) 1,000 mls @ 0 mls/hr IV.SIG BOLUS LILIA Last Infusion: 01/10/18 07:33 Dose: Infused Azithromycin 250 mg/ Sodium (Chloride) 250 mls @ 250 mls/hr IV.SIG Q24H LILIA Ceftriaxone Sodium 1,000 mg/ (Sodium Chloride) 100 mls @ 200 mls/hr IV.SIG Q24H LILIA Lactulose (Lactulose Liq) 30 ml PO DAILY PRN PRN Reason: SEVERE CONSITIPATION Senna/Docusate Sodium (Danna-Colace) 1 tab PO BID LILIA Sennosides (Senokot) 17.2 mg PO Q12H PRN PRN Reason: Moderate Constipation Allergies Allergy/AdvReac Type Severity Reaction Status Date / Time metoclopramide Allergy Severe Rash Verified 01/10/18 05:56 butorphanol AdvReac Severe NEUROLOGICAL Verified 01/10/18 05:56 EFFECTS quetiapine AdvReac Severe Confusion Verified 01/10/18 05:56 Home Medications Medication Instructions Recorded Confirmed Type atenolol 50 mg PO DAILY 01/10/18 01/10/18 History buspirone 30 mg PO BID 01/10/18 01/10/18 History clonazepam 1 mg PO TID 01/10/18 01/10/18 History folic acid 1 mg PO DAILY 01/10/18 01/10/18 History gabapentin 400 mg PO TID 01/10/18 01/10/18 History oxycodone [OxyContin] 60 mg PO Q12H 01/10/18 01/10/18 History paroxetine HCl 40 mg PO DAILY 01/10/18 01/10/18 History trazodone 100 mg PO DAILY 01/10/18 01/10/18 History Exam Vital signs: Vital Signs 01/10/18 05:58 01/10/18 06:00 01/10/18 06:30 Temperature 101.1 F H Pulse Rate 95 H 89 89 Respiratory Rate 20 22 Blood Pressure 103/60 102/59 L Pulse Oximetry 93 L 93 L 01/10/18 06:59 01/10/18 07:13 01/10/18 07:21 Temperature Pulse Rate 89 83 Respiratory Rate 16 14 14 Blood Pressure 96/57 L Pulse Oximetry 90 L 96 01/10/18 08:42 01/10/18 09:34 01/10/18 10:25 Temperature 98.7 F Pulse Rate 80 Respiratory Rate 14 14 Blood Pressure 93/59 L Pulse Oximetry 90 L 95 Intake & Output 01/09/18 01/10/18 01/10/18 18:59 06:59 18:59 Intake Total 1350 / 1350 Balance 1350 / 1350 Weight 81.647 kg 83.9 kg Intake: IV 1350 / 1350 Azithromycin Inj 500 MG In NS 250 / 250 Inj 250 ML @ 250 mls/hr IV.SIG ONCE ONE Rx#:[id number] NS Inj 1,000 ML @ Wide Open IV. 1000 / 1000 SIG BOLUS LILIA Rx#:[id number] Rocephin Inj 1,000 MG In NS Inj 100 / 100 100 ML @ 200 mls/hr IV.SIG ONCE ONE Rx#:[id number] Other: Weight On Admission 81.647 kg - Constitutional no acute distress - Routine HEENT Exam Head: Present: normocephalic, atraumatic Eye: Present: EOMI, PERRL ENT: Present: mucous membranes moist - Routine Neck Exam Present: supple, full ROM - Routine Respiratory Exam Present: CTA bilaterally - Routine Cardiovascular Exam Present: RRR, S1, S2 Comments: No rubs murmurs or gallops. - Routine Abdominal Exam Present: soft, normoactive bowel sounds Comments: Negative for any tenderness palpation. Negative for any peritoneal signs. - Routine Extremities Exam Comments: Negative for any lower extremity edema. - Routine Skin Exam Present: intact - Routine Neurological Exam Present: alert, oriented X3 Sensation and motor grossly intact. Results - Labs CBC & Chem 7: 01/10/18 06:30 01/10/18 06:30 Labs: Laboratory Results - last 24 hr 01/10/18 01/10/18 01/10/18 06:30 06:30 06:30 CBC w Diff Auto diff final WBC 7.9 RBC 3.56 L Hgb 11.9 Hct 35.9 MCV 100.7 H MCH 33.3 MCHC 33.0 RDW 13.0 Plt Count 190 MPV 7.0 Neut % (Auto) 85.5 H Lymph % (Auto) 9.3 [place] % (Auto) 4.3 Eos % (Auto) 0.5 Baso % (Auto) 0.4 Neut # (Auto) 6.9 Lymph # (Auto) 0.7 L [place] # (Auto) 0.3 Eos # (Auto) 0.0 Baso # (Auto) 0.0 WBC Differential . Differential Comment . Puncture Site Patient Temperature O2 Saturation ABG pH ABG pCO2 ABG pO2 ABG HCO3 ABG O2 Content ABG Base Excess ABG Methemoglobin Dion Test Hemoglobin Carboxyhemoglobin O2 Delivery Device Liter Flow Critical Value Sodium 134 L Potassium 3.8 Chloride 99 Carbon Dioxide 26.5 Anion Gap 9 BUN 12 Creatinine 0.72 Estimated GFR 84 L Random Glucose 112 H Lactic Acid 0.8 Calcium 8.0 L Total Bilirubin 1.0 AST 26 ALT 32 Alkaline Phosphatase 86 Troponin I Less than 0.02 L Total Protein 6.7 Albumin 3.2 L 01/10/18 07:10 CBC w Diff WBC RBC Hgb Hct MCV MCH MCHC RDW Plt Count MPV Neut % (Auto) Lymph % (Auto) [place] % (Auto) Eos % (Auto) Baso % (Auto) Neut # (Auto) Lymph # (Auto) [place] # (Auto) Eos # (Auto) Baso # (Auto) WBC Differential Differential Comment Puncture Site Right radial Patient Temperature 98.6 O2 Saturation 88 L* ABG pH 7.41 ABG pCO2 43 H ABG pO2 63 ABG HCO3 27 H ABG O2 Content 14.8 ABG Base Excess 2.9 H ABG Methemoglobin 1.4 Dion Test Present Hemoglobin 12.0 Carboxyhemoglobin 4.5 H O2 Delivery Device Nasal cannula Liter Flow 3.50 Critical Value Yes Sodium Potassium Chloride Carbon Dioxide Anion Gap BUN Creatinine Estimated GFR Random Glucose Lactic Acid Calcium Total Bilirubin AST ALT Alkaline Phosphatase Troponin I Total Protein Albumin - Imaging Impressions Ribs X-Ray 01/10/18 05:47 CONCLUSION: Interstitial prominence and probable small bilateral effusions. No evidence of rib fracture Chest CTA 01/10/18 06:58 CONCLUSION: Examination of the pulmonary vasculature demonstrates good filling of the main, lobar and segmental branches. There are no filling defects to suggest pulmonary embolism. Multiplanar reconstructions are also unremarkable. Bronchiectasis left lower lobe with probable inflammatory nodule left base. Followup CT scan in 6 months is recommended. Caprini VTE Risk Assessment Caprini VTE Risk Assessment: Moderate/High Risk (score >= 2) Caprini Risk Assessment Model: Point Value = 1 Point Value = 2 Point Value = 3 Point Value = 5 Age 41-60 Minor surgery BMI > 25 kg/m2 Swollen legs Varicose veins or History of unexplained or recurrent spontaneous Oral contraceptives or hormone replacement Sepsis (< 1 month) Serious lung disease, including pneumonia (< 1 month) Abnormal pulmonary function Acute myocardial infarction Congestive heart failure (< 1 month) History of inflammatory bowel disease Medical patient at bed rest Age 61-74 Arthroscopic surgery Major open surgery (> 45 min) Laparoscopic surgery (> 45 min) Malignancy Confined to bed (> 72 hours) Immobilizing plaster cast Central venous access Age >= 75 History of VTE Family history of VTE Factor V Leiden Prothrombin [id number] Lupus anticoagulant Anticardiolipin antibodies Elevated serum homocysteine Heparin-induced thrombocytopenia Other congenital or acquired thrombophilia Stroke (< 1 month) Elective arthroplasty Hip, pelvis, or leg fracture Acute spinal cord injury (< 1 month) Prophylaxis Regimen: Total Risk Factor Score Risk Level Prophylaxis Regimen 0-1 Low Early ambulation 2 Moderate Order ONE of the following: *Sequential Compression Device (SCD) *Heparin 5000 units SQ BID 3-4 Higher Order ONE of the following medications: *Heparin 5000 units SQ TID *Enoxaparin/Lovenox 40 mg SQ daily (WT < 150 kg, CrCl > 30 mL/min) *Enoxaparin/Lovenox 30 mg SQ daily (WT < 150 kg, CrCl > 10-29 mL/min) *Enoxaparin/Lovenox 30 mg SQ BID (WT < 150 kg, CrCl > 30 mL/min) AND/OR *Sequential Compression Device (SCD) 5 or more Highest Order ONE of the following medications: *Heparin 5000 units SQ TID (Preferred with Epidurals) *Enoxaparin/Lovenox 40 mg SQ daily (WT < 150 kg, CrCl > 30 mL/min) *Enoxaparin/Lovenox 30 mg SQ daily (WT < 150 kg, CrCl > 10-29 mL/min) *Enoxaparin/Lovenox 30 mg SQ BID (WT < 150 kg, CrCl > 30 mL/min) AND *Sequential Compression Device (SCD) Assessment and Plan - Plan This is a 52-year-old female past medical history of COPD, chronic pain syndrome secondary to psoriatic arthritis, and anxiety disorder who presented with shortness of breathing. Dyspnea -Labs and imaging review significant for CTA showing bronchiectasis with inflammatory nodule in the left lower lobe. Recommendation was to do a follow- up CT scan in 6 months. Patient found to be hypoxic on 2 L currently. She is not on any home oxygen. Clinically lungs are pretty clear. Treat empirically for pneumonia. -We will give Rocephin and azithromycin. -Wean off oxygen as tolerated. Since patient does have COPD goal is greater than 80%. COPD/chronic pain syndrome/anxiety disorder -continue with home medication DVT prophylaxis -lovenox
[2018-01-10] MEDS: clonazePAM 1 MG Tablet PO SCH ×2 (15:35→21:15)
[2018-01-10] MEDS: oxyCODONE HCL 20 MG Controlled Release Tablet PO SCH (15:35)
[2018-01-10] MEDS: Atenolol 50 MG Tablet PO SCH (15:54)
[2018-01-10] MEDS: Gabapentin 400 MG Capsule PO SCH ×2 (16:11→18:50)
[2018-01-10] MEDS: Folic Acid 1 MG Tablet PO SCH (16:11)
[2018-01-10 18:40] LABS: Bilirubin,Urine Negative (Negative); Clarity,Urine Clear (Clear); Color,Urine Yellow (Yellw/Straw); Glucose,Urine (UA) Negative (Negative); Leukocyte Esterase,Urine Negative (Negative); Nitrite,Urine Negative (Negative)
[2018-01-10 18:45] LABS: Bacteria,Urine Rare /hpf; Mucus,Urine Few /lpf (Occasional); Squamous Epithelial Cell,Urine 0-5 /hpf (0-5); WBC,Urine 0-5 /hpf (0-5)
--- NOTE | 2018-01-10 19:26 | ECG ---
Date Performed: 01/10/2018 Time Performed: 06:47:40 PTAGE: 52 years EKG: Sinus rhythm POSSIBLE LEFT ATRIAL ENLARGEMENT NONSPECIFIC T-WAVE ABNORMALITY BORDERLINE ECG PREVIOUS TRACING : 05/11/2017 12.14 Since the previous tracing, no significant change noted DOCTOR: Michelle Castrejon Interpretating Date/Time 01/10/2018 19:25:13
[2018-01-10] MEDS: Senna/Docusate Sodium 8.6/50 MG Tablet PO SCH (21:34)
[2018-01-10] MEDS ORDERED: clonazePAM 1 MG Tablet PO ONE (21:50)
[2018-01-11] MEDS: oxyCODONE HCL 20 MG Controlled Release Tablet PO SCH ×2 (00:32→16:06)
[2018-01-11 05:06] LABS: Baso % (Auto) 0.2 % (0.0-2.0); Eos % (Auto) 0.1 % (0.0-4.0); Hematocrit 35.5 % (35.0-46.0); Hemoglobin 11.6 gm/dL (11.6-15.3); Lymph # (Auto) 0.9 th/mm3 (1.0-4.8); Lymph % (Auto) 11.3 % (9.0-44.0); Mean Corpuscular HGB Conc 32.7 % (32.0-36.0); Mean Corpuscular Hemoglobin 33.2 pg (27.0-34.0); Mean Corpuscular Volume 101.4 fL (80.0-100.0); Mean Platelet Volume 7.1 fL (7.0-11.0); Mono # (Auto) 0.4 th/mm3 (0.0-0.9); Mono % (Auto) 4.4 % (0.0-8.0); Platelet Count 198 th/mm3 (150-450); Red Cell Distribution Width 13.1 % (11.6-17.2); White Blood Count 8.3 th/mm3 (4.0-11.0)
[2018-01-11 05:28] LABS: Anion Gap 8 meq/L (5-15); Blood Urea Nitrogen 12 mg/dL (7-18); Calcium 8.1 mg/dL (8.5-10.1); Carbon Dioxide 25.2 meq/L (21.0-32.0); Chloride 108 meq/L (98-107); Glomerular Filtration Rate Greater Than 89 mL/min (>89); Glucose,Random 100 mg/dL (74-106); Potassium 3.8 meq/L (3.5-5.1); Sodium 141 meq/L (136-145)
[2018-01-11] MEDS: Azithromycin Inj 250 MG in Sodium Chlor 0.9% Inj 250 ML IV.SIG SCH (06:13)
[2018-01-11] MEDS ORDERED: traZODone 100 MG Tablet PO SCH (09:00)
[2018-01-11] MEDS: Sod Chloride 0.9% Inj 1,000 ML IV.SIG SCH ×2 (09:38→14:40)
[2018-01-11] MEDS: Senna/Docusate Sodium 8.6/50 MG Tablet PO SCH ×2 (09:39→21:11)
[2018-01-11] MEDS: Gabapentin 400 MG Capsule PO SCH ×3 (09:39→18:40)
[2018-01-11] MEDS: Folic Acid 1 MG Tablet PO SCH (09:39)
[2018-01-11] MEDS ORDERED: Sod Chloride 0.9% Inj 1,000 ML IV.SIG SCH ×2 (10:00→14:04)
[2018-01-11] MEDS: clonazePAM 1 MG Tablet PO SCH ×3 (10:30→18:40)
[2018-01-11] MEDS: Atenolol 50 MG Tablet PO SCH (10:32)
[2018-01-11] MEDS: guaiFENesin 600 MG ER Tablet PO SCH ×2 (10:39→21:11)
--- NOTE | 2018-01-11 15:59 | P.PNIM ---
Subjective Interval history: Follow-up for left lower lobe pneumonia. Patient continues to have cough but she feels like she is better and is asking to go home. Pain is only with cough. She remains afebrile overnight. Patient was hypotensive this morning but asymptomatic. She denies any chest pain, shortness of breathing, lightheadedness or dizziness. Patient is very anxious to go home today. Physical Exam Vital signs: Vital Signs 01/10/18 16:12 01/10/18 17:00 01/10/18 20:00 Temperature 98.1 F 98.7 F Pulse Rate 70 60 65 Respiratory Rate 30 H 22 15 Blood Pressure 116/64 119/71 114/61 Pulse Oximetry 95 97 93 L 01/10/18 20:56 01/11/18 00:00 01/11/18 04:00 Temperature 98.5 F 98.2 F Pulse Rate 60 65 Respiratory Rate 15 17 Blood Pressure 100/69 126/75 Pulse Oximetry 94 L 92 L 93 L 01/11/18 07:00 01/11/18 07:55 01/11/18 08:00 Temperature Pulse Rate 64 62 Respiratory Rate 13 11 L Blood Pressure 95/63 L 104/62 Pulse Oximetry 92 L 92 L 93 L 01/11/18 09:00 01/11/18 09:05 01/11/18 09:09 Temperature Pulse Rate 72 70 74 Respiratory Rate 10 L 11 L 14 Blood Pressure 83/49 L 81/50 L 86/49 L Pulse Oximetry 92 L 93 L 93 L 01/11/18 09:14 01/11/18 09:19 01/11/18 09:34 Temperature Pulse Rate 74 76 76 Respiratory Rate 11 L 23 18 Blood Pressure 82/48 L 83/51 L 78/46 L Pulse Oximetry 93 L 93 L 82 L 01/11/18 09:49 01/11/18 10:00 01/11/18 10:04 Temperature Pulse Rate 80 72 68 Respiratory Rate 24 23 14 Blood Pressure 72/47 L 86/53 L 86/53 L Pulse Oximetry 92 L 95 96 01/11/18 10:35 01/11/18 10:49 01/11/18 11:04 Temperature Pulse Rate 58 L 54 L 56 L Respiratory Rate 16 7 L 12 Blood Pressure 84/60 L 105/65 106/68 Pulse Oximetry 96 94 L 95 01/11/18 11:19 01/11/18 11:57 01/11/18 12:00 Temperature Pulse Rate 58 L 74 76 Respiratory Rate 11 L 63 H 28 H Blood Pressure 110/71 97/71 L 110/61 Pulse Oximetry 94 L 93 L 92 L 01/11/18 13:36 01/11/18 13:39 01/11/18 14:00 Temperature Pulse Rate 74 76 Respiratory Rate 15 28 H Blood Pressure 96/51 L 82/58 L 73/64 L Pulse Oximetry 95 95 Intake & Output 01/10/18 01/11/18 01/11/18 18:59 06:59 18:59 Intake Total 2830 / 2830 100 / 100 2250 / 2250 Output Total 580 / 580 Balance 2250 / 2250 100 / 100 2250 / 2250 Weight 83.9 kg 84 kg Intake: IV 2350 / 2350 100 / 100 2250 / 2250 Azithromycin Inj 250 MG In NS 250 / 250 250 / 250 Inj 250 ML @ 250 mls/hr IV.SIG Q24H LILIA Rx#:[id number] NS Inj 1,000 ML @ Wide Open IV. 1999 SIG BOLUS LILIA Rx#:[id number] Rocephin Inj 1,000 MG In NS Inj 100 / 100 100 / 100 100 ML @ 200 mls/hr IV.SIG Q24H LILIA Rx#:[id number] Oral 480 / 480 Output: Urine 580 / 580 Other: Post Void Residual 1,000 Date of Last Bowel Movement 01/08/18 Weight On Admission 81.647 kg - Constitutional no acute distress - Routine HEENT Exam ENT: Present: mucous membranes dry - Routine Respiratory Exam Present: CTA bilaterally - Routine Cardiovascular Exam Present: RRR, S1, S2 Comments: No rubs murmurs or gallops. - Routine Abdominal Exam Present: soft, normoactive bowel sounds Comments: Nondistended nontender. - Routine Extremities Exam Comments: Negative for any lower extremity edema. Results - Labs CBC & Chem 7: 01/11/18 04:30 01/11/18 04:30 Laboratory Results - last 24 hr 01/10/18 01/11/18 01/11/18 18:00 04:30 04:30 CBC w Diff Auto diff final WBC 8.3 RBC 3.50 L Hgb 11.6 Hct 35.5 MCV 101.4 H MCH 33.2 MCHC 32.7 RDW 13.1 Plt Count 198 MPV 7.1 Neut % (Auto) 84.0 H Lymph % (Auto) 11.3 [place] % (Auto) 4.4 Eos % (Auto) 0.1 Baso % (Auto) 0.2 Neut # (Auto) 7.0 Lymph # (Auto) 0.9 L [place] # (Auto) 0.4 Eos # (Auto) 0.0 Baso # (Auto) 0.0 WBC Differential . Differential Comment . Sodium 141 Potassium 3.8 Chloride 108 H D Carbon Dioxide 25.2 Anion Gap 8 BUN 12 Creatinine 0.53 Estimated GFR Greater than 89 Random Glucose 100 Calcium 8.1 L Urine Color Yellow Urine Clarity Clear Urine pH 6.0 Ur Specific [place] 1.010 Urine Protein Negative Urine Glucose (UA) Negative Urine Ketones Trace H Urine Occult Blood Negative Urine Nitrate Negative Urine Bilirubin Negative Urine Urobilinogen 1.0 Ur Leukocyte Esterase Negative Urine WBC 0-5 Ur Squamous Epith Cells 0-5 Urine Bacteria Rare H Urine Mucus Few H Micro UA Comment Culture not ind Ur Microscopic Review Microscopic reviewed Urine Culture Comments Culture not ind Microbiology 01/10/18 06:25 Blood - Peripheral Aerobic Blood Culture - Preliminary No growth in 1 day 01/10/18 06:25 Blood - Peripheral Anaerobic Blood Culture - Preliminary No growth in 1 day 01/10/18 06:30 Blood - Peripheral Aerobic Blood Culture - Preliminary No growth in 1 day 01/10/18 06:30 Blood - Peripheral Anaerobic Blood Culture - Preliminary No growth in 1 day Assessment and Plan - Plan This is a 52-year-old female past medical history of COPD, chronic pain syndrome secondary to psoriatic arthritis, and anxiety disorder who presented with shortness of breathing. Left lower lobe pneumonia/acute respiratory failure with hypoxia -Labs and imaging review significant for CTA showing bronchiectasis with inflammatory nodule in the left lower lobe. Recommendation was to do a follow- up CT scan in 6 months. Patient found to be hypoxic on 2 L currently. She is not on any home oxygen. Clinically lungs are pretty clear. Treat empirically for pneumonia. -Continue Rocephin and azithromycin. -Wean off oxygen as tolerated. Since patient does have COPD goal is greater than 80%. Hypotension -We will give normal saline bolus and see how patient responds. Clinically patient does not look toxic and seems to be improving. -I am suspecting that this may be due her pain medication. We will need to hold pain medication. COPD/chronic pain syndrome/anxiety disorder -continue with home medication except for her pain medication. DVT prophylaxis -alivia Discussed case with patient's nurse and charge nurse.
[2018-01-11] MEDS ORDERED: oxyCODONE HCL 20 MG Controlled Release Tablet PO ONE (16:30)
--- NOTE | 2018-01-11 21:26 | P.PN ---
Subjective Interval history: F/U PNA Physical Exam Vital signs: Vital Signs 01/11/18 00:00 01/11/18 04:00 01/11/18 07:00 Temperature 98.5 F 98.2 F Pulse Rate 60 65 64 Respiratory Rate 15 17 13 Blood Pressure 100/69 126/75 95/63 L Pulse Oximetry 92 L 93 L 92 L 01/11/18 07:55 01/11/18 08:00 01/11/18 09:00 Temperature Pulse Rate 61 72 Respiratory Rate 11 L 10 L Blood Pressure 104/62 83/49 L Pulse Oximetry 92 L 92 L 92 L 01/11/18 09:05 01/11/18 09:09 01/11/18 09:14 Temperature Pulse Rate 70 74 74 Respiratory Rate 11 L 14 11 L Blood Pressure 81/50 L 86/49 L 82/48 L Pulse Oximetry 93 L 93 L 93 L 01/11/18 09:19 01/11/18 09:34 01/11/18 09:49 Temperature Pulse Rate 76 76 80 Respiratory Rate 23 18 24 Blood Pressure 83/51 L 78/46 L 72/47 L Pulse Oximetry 93 L 82 L 92 L 01/11/18 10:00 01/11/18 10:04 01/11/18 10:35 Temperature Pulse Rate 72 68 58 L Respiratory Rate 23 14 16 Blood Pressure 86/53 L 86/53 L 84/60 L Pulse Oximetry 95 96 96 01/11/18 10:49 01/11/18 11:04 01/11/18 11:19 Temperature Pulse Rate 54 L 56 L 58 L Respiratory Rate 7 L 12 11 L Blood Pressure 105/65 106/68 110/71 Pulse Oximetry 94 L 95 94 L 01/11/18 11:57 01/11/18 12:00 01/11/18 13:36 Temperature Pulse Rate 74 76 74 Respiratory Rate 63 H 28 H 15 Blood Pressure 97/71 L 110/61 96/51 L Pulse Oximetry 93 L 92 L 95 01/11/18 13:39 01/11/18 14:00 01/11/18 16:00 Temperature Pulse Rate 76 66 Respiratory Rate 28 H 23 Blood Pressure 82/58 L 73/64 L 173/83 H Pulse Oximetry 95 93 L 01/11/18 18:00 01/11/18 20:00 01/11/18 20:06 Temperature 97.8 F Pulse Rate 64 72 71 Respiratory Rate 20 18 16 Blood Pressure 172/72 H 109/61 Pulse Oximetry 96 96 94 L Intake & Output 01/11/18 01/11/18 01/12/18 06:59 18:59 06:59 Intake Total 100 / 100 3210 / 3210 Balance 100 / 100 3210 / 3210 Weight 84 kg Intake: IV 100 / 100 2250 / 2250 Azithromycin Inj 250 MG In NS 250 / 250 Inj 250 ML @ 250 mls/hr IV.SIG Q24H [facility] Rx#:[id number] NS Inj 1,000 ML @ Wide Open IV. 1999 SIG BOLUS [facility]IL[facility] Rx#:[id number] Rocephin Inj 1,000 MG In NS Inj 100 / 100 100 ML @ 200 mls/hr IV.SIG Q24H [facility] Rx#:[id number] Oral 960 / 960 Other: Post Void Residual 1,000 # Voids 4 Date of Last Bowel Movement 01/08/18 01/04/18 01/05/18 Results - Labs CBC & Chem 7: 01/11/18 04:30 01/11/18 04:30 Laboratory Results - last 24 hr 01/11/18 01/11/18 04:30 04:30 CBC w Diff Auto diff final WBC 8.3 RBC 3.50 L Hgb 11.6 Hct 35.5 MCV 101.4 H MCH 33.2 MCHC 32.7 RDW 13.1 Plt Count 198 MPV 7.1 Neut % (Auto) 84.0 H Lymph % (Auto) 11.3 [place] % (Auto) 4.4 Eos % (Auto) 0.1 Baso % (Auto) 0.2 Neut # (Auto) 7.0 Lymph # (Auto) 0.9 L [place] # (Auto) 0.4 Eos # (Auto) 0.0 Baso # (Auto) 0.0 WBC Differential . Differential Comment . Sodium 141 Potassium 3.8 Chloride 108 H D Carbon Dioxide 25.2 Anion Gap 8 BUN 12 Creatinine 0.53 Estimated GFR Greater than 89 Random Glucose 100 Calcium 8.1 L Microbiology 01/10/18 06:25 Blood - Peripheral Aerobic Blood Culture - Preliminary No growth in 1 day 01/10/18 06:25 Blood - Peripheral Anaerobic Blood Culture - Preliminary No growth in 1 day 01/10/18 06:30 Blood - Peripheral Aerobic Blood Culture - Preliminary No growth in 1 day 01/10/18 06:30 Blood - Peripheral Anaerobic Blood Culture - Preliminary No growth in 1 day - Imaging ITS Impressions Ribs X-Ray 01/10/18 05:47 CONCLUSION: Interstitial prominence and probable small bilateral effusions. No evidence of rib fracture Chest CTA 01/10/18 06:58 CONCLUSION: Examination of the pulmonary vasculature demonstrates good filling of the main, lobar and segmental branches. There are no filling defects to suggest pulmonary embolism. Multiplanar reconstructions are also unremarkable. Bronchiectasis left lower lobe with probable inflammatory nodule left base. Followup CT scan in 6 months is recommended. - Procedures none Assessment and Plan - Plan This is a 52-year-old female past medical history of COPD, chronic pain syndrome secondary to psoriatic arthritis, and anxiety disorder who presented with shortness of breathing. Left lower lobe pneumonia/acute respiratory failure with hypoxia -Labs and imaging review significant for CTA showing bronchiectasis with inflammatory nodule in the left lower lobe. Recommendation was to do a follow- up CT scan in 6 months. Patient found to be hypoxic on 2 L currently. She is not on any home oxygen. Clinically lungs are pretty clear. Treat empirically for pneumonia. -Continue Rocephin and azithromycin. -Wean off oxygen as tolerated. Since patient does have COPD goal is greater than 80%. Hypotension -We will give normal saline bolus and see how patient responds. Clinically patient does not look toxic and seems to be improving. -I am suspecting that this may be due her pain medication. We will need to hold pain medication. COPD/chronic pain syndrome/anxiety disorder -continue with home medication except for her pain medication. DVT prophylaxis -SCD and OOB
[2018-01-12] MEDS: oxyCODONE HCL 20 MG Controlled Release Tablet PO SCH ×2 (00:16→13:29)
[2018-01-12 04:48] VITALS: TEMP 98.3
[2018-01-12 05:22] LABS: Hemoglobin 11.6 gm/dL (11.6-15.3); Mean Corpuscular HGB Conc 33.2 % (32.0-36.0); Mean Corpuscular Hemoglobin 33.5 pg (27.0-34.0); Mean Corpuscular Volume 100.9 fL (80.0-100.0); Mean Platelet Volume 6.9 fL (7.0-11.0); Platelet Count 177 th/mm3 (150-450); Red Blood Count 3.47 mil/mm3 (4.00-5.30); Red Cell Distribution Width 13.3 % (11.6-17.2); White Blood Count 4.8 th/mm3 (4.0-11.0)
[2018-01-12 05:26] LABS: Chloride 112 meq/L (98-107); Potassium 3.9 meq/L (3.5-5.1); Sodium 144 meq/L (136-145)
[2018-01-12 05:28] LABS: Calcium 7.8 mg/dL (8.5-10.1)
[2018-01-12 05:29] LABS: Anion Gap 8 meq/L (5-15); Blood Urea Nitrogen 9 mg/dL (7-18); Carbon Dioxide 24.3 meq/L (21.0-32.0); Glucose,Random 78 mg/dL (74-106)
[2018-01-12 05:32] LABS: Glomerular Filtration Rate Greater Than 89 mL/min (>89)
[2018-01-12] MEDS: Azithromycin Inj 250 MG in Sodium Chlor 0.9% Inj 250 ML IV.SIG SCH (06:11)
[2018-01-12] MEDS: clonazePAM 1 MG Tablet PO SCH ×2 (09:29→13:29)
[2018-01-12] MEDS: Gabapentin 400 MG Capsule PO SCH ×2 (09:29→13:30)
[2018-01-12] MEDS: guaiFENesin 600 MG ER Tablet PO SCH (09:29)
[2018-01-12] MEDS: Folic Acid 1 MG Tablet PO SCH (09:29)
[2018-01-12] MEDS: Senna/Docusate Sodium 8.6/50 MG Tablet PO SCH (09:29)
[2018-01-12] MEDS ORDERED: Benzonatate 100 MG Capsule PO PRN (09:43)
--- NOTE | 2018-01-12 09:50 | P.PN ---
Subjective Interval history: Follow-up pneumonia. She has wet sounding cough denies being productive. Improved shortness of breath and wants to go home. She has not been ambulating. Pulmonary is Dr. Ashford Physical Exam Vital signs: Vital Signs 01/11/18 09:49 01/11/18 10:00 01/11/18 10:04 Temperature Pulse Rate 80 72 68 Respiratory Rate 24 23 14 Blood Pressure 72/47 L 86/53 L 86/53 L Pulse Oximetry 92 L 95 96 Pulse Oximetry [Resting on Room Air] Pulse Oximetry [Resting with Oxygen] 01/11/18 10:35 01/11/18 10:49 01/11/18 11:04 Temperature Pulse Rate 58 L 54 L 56 L Respiratory Rate 16 7 L 12 Blood Pressure 84/60 L 105/65 106/68 Pulse Oximetry 96 94 L 95 Pulse Oximetry [Resting on Room Air] Pulse Oximetry [Resting with Oxygen] 01/11/18 11:19 01/11/18 11:57 01/11/18 12:00 Temperature Pulse Rate 58 L 74 76 Respiratory Rate 11 L 63 H 28 H Blood Pressure 110/71 97/71 L 110/61 Pulse Oximetry 94 L 93 L 92 L Pulse Oximetry [Resting on Room Air] Pulse Oximetry [Resting with Oxygen] 01/11/18 13:36 01/11/18 13:39 01/11/18 14:00 Temperature Pulse Rate 74 76 Respiratory Rate 15 28 H Blood Pressure 96/51 L 82/58 L 73/64 L Pulse Oximetry 95 95 Pulse Oximetry [Resting on Room Air] Pulse Oximetry [Resting with Oxygen] 01/11/18 16:00 01/11/18 18:00 01/11/18 20:00 Temperature 97.8 F Pulse Rate 66 64 72 Respiratory Rate 23 20 18 Blood Pressure 173/83 H 172/72 H 109/61 Pulse Oximetry 93 L 96 96 Pulse Oximetry [Resting on Room Air] Pulse Oximetry [Resting with Oxygen] 01/11/18 20:06 01/12/18 00:00 01/12/18 01:00 Temperature Pulse Rate 71 68 Respiratory Rate 16 19 4 L Blood Pressure 122/70 Pulse Oximetry 94 L 91 L Pulse Oximetry [Resting on Room Air] Pulse Oximetry [Resting with Oxygen] 01/12/18 04:00 01/12/18 07:45 01/12/18 08:00 Temperature 98.3 F 98.3 F Pulse Rate 70 80 Respiratory Rate 20 21 Blood Pressure 111/60 113/69 Pulse Oximetry 96 93 L Pulse Oximetry [Resting on Room Air] 86 L Pulse Oximetry [Resting with Oxygen] 93 L 01/12/18 08:23 Temperature Pulse Rate Respiratory Rate Blood Pressure Pulse Oximetry 93 L Pulse Oximetry [Resting on Room Air] Pulse Oximetry [Resting with Oxygen] Intake & Output 01/11/18 01/12/18 01/12/18 18:59 06:59 18:59 Intake Total 3210 / 3210 100 / 100 250 / 250 Output Total 1100 / 1100 750 / 750 Balance 3210 / 3210 -1000 / -1000 -500 / -500 Weight 86.1 kg Intake: IV 2250 / 2250 100 / 100 250 / 250 Azithromycin Inj 250 MG In NS 250 / 250 250 / 250 Inj 250 ML @ 250 mls/hr IV.SIG Q24H [facility] Rx#:[id number] NS Inj 1,000 ML @ Wide Open IV. 1999 SIG BOLUS [facility] Rx#:[id number] Rocephin Inj 1,000 MG In NS Inj 100 / 100 100 ML @ 200 mls/hr IV.SIG Q24H [facility] Rx#:[id number] Oral 960 / 960 Output: Urine 1100 / 1100 750 / 750 Other: # Voids 4 Date of Last Bowel Movement 01/04/18 01/05/18 Narrative: GENERAL: Well-developed and well-nourished on nasal cannula SKIN: Warm and dry. CARDIOVASCULAR: Regular rate and rhythm. RESPIRATORY: No accessory muscle use. Diffuse expiratory wheezes. Breath sounds equal bilaterally. GASTROINTESTINAL: Abdomen soft, non-tender, nondistended. MUSCULOSKELETAL: Extremities without clubbing, cyanosis, or edema. No obvious deformities. NEUROLOGICAL: Awake and alert. No obvious cranial nerve deficits. Motor grossly within normal limits. Five out of 5 muscle strength in the arms and legs. Normal speech. PSYCHIATRIC: Appropriate mood and affect; insight and judgment normal. Results - Labs CBC & Chem 7: 01/12/18 04:28 01/12/18 04:28 Laboratory Results - last 24 hr 01/12/18 01/12/18 04:28 04:28 WBC 4.8 RBC 3.47 L Hgb 11.6 Hct 35.0 MCV 100.9 H MCH 33.5 MCHC 33.2 RDW 13.3 Plt Count 177 MPV 6.9 L Sodium 144 Potassium 3.9 Chloride 112 H Carbon Dioxide 24.3 Anion Gap 8 BUN 9 Creatinine 0.49 L Estimated GFR Greater than 89 Random Glucose 78 Calcium 7.8 L Microbiology 01/10/18 06:25 Blood - Peripheral Aerobic Blood Culture - Preliminary No growth in 1 day 01/10/18 06:25 Blood - Peripheral Anaerobic Blood Culture - Preliminary No growth in 1 day 01/10/18 06:30 Blood - Peripheral Aerobic Blood Culture - Preliminary No growth in 1 day 01/10/18 06:30 Blood - Peripheral Anaerobic Blood Culture - Preliminary No growth in 1 day - Imaging ITS Impressions Ribs X-Ray 01/10/18 05:47 CONCLUSION: Interstitial prominence and probable small bilateral effusions. No evidence of rib fracture Chest CTA 01/10/18 06:58 CONCLUSION: Examination of the pulmonary vasculature demonstrates good filling of the main, lobar and segmental branches. There are no filling defects to suggest pulmonary embolism. Multiplanar reconstructions are also unremarkable. Bronchiectasis left lower lobe with probable inflammatory nodule left base. Followup CT scan in 6 months is recommended. - Procedures none Assessment and Plan - Plan This is a 52-year-old female past medical history of COPD, chronic pain syndrome secondary to psoriatic arthritis, and anxiety disorder who presented with shortness of breathing. Left lower lobe pneumonia/acute respiratory failure with hypoxia -Labs and imaging review significant for CTA showing bronchiectasis with inflammatory nodule in the left lower lobe. Recommendation was to do a follow- up CT scan in 6 months. Patient found to be hypoxic on 2 L currently. She is not on any home oxygen. Treat empirically for pneumonia. -Continue Rocephin and azithromycin. -Failed walk test request home oxygen Hypotension -Improved with fluid bolus. Clinically patient does not look toxic and seems to be improving. -I am suspecting that this may be due her pain medication which was restarted will monitor. COPD exacerbation -Scheduled nebulization and steroids. Increase activity as tolerated chronic pain syndrome/anxiety disorder -continue with home medication DVT prophylaxis -SCD and OOB Discharge Planning: Discharge when clinically improved
[2018-01-12] MEDS ORDERED: MethylPREDNISolone Sod Succinate Inj 40 MG/ML Vial IV.PUSH SCH (10:00)
--- NOTE | 2018-01-12 14:41 | P.DCO ---
- Physical Therapy Order: Evaluate and treat, Improve ambulation, Strength and gait training - Home Health Nursing Order: Medical education, Oxygen administration education, Medication education- adverse effect - Case Management Consult Yes - Certification I have seen patient Aiyana Li on 01/12/18. My clinical findings support the need for the requested home health care services because: Patient has SOB I certify that my clinical findings support that this patient is homebound because: Hx COPD - exertion dyspnea/weakness
--- NOTE | 2018-01-12 14:51 | P.DS ---
Date of admission: 01/10/18 08:34 Primary care physician: Tiera Mckinnon Brief History from admission: This is a 52-year-old female past medical history of COPD and chronic pain syndrome secondary to psoriatic arthritis who presented with shortness of breathing. Patient stated that she fell on her right ribs 2 weeks ago. She stated that about 1 week ago she started having shortness of breathing along with a dry cough. Later the cough turned into a productive cough described as clear, yellowish and greenish sputum. Patient stated that over the week she has got very fatigued so she came here. In the emergency department she was found to be hypoxic and requiring 4 L of oxygen. When I saw patient at the bedside she only was on 2 L of oxygen. Patient is not on any home oxygen. She continued to smoke tobacco 1 pack per day for about 20+ years. She has no other complaints. She was asking to go home. DS: Summary Hospital Course: This is a 52-year-old female past medical history of COPD, chronic pain syndrome secondary to psoriatic arthritis, and anxiety disorder who presented with shortness of breathing. Left lower lobe pneumonia/acute respiratory failure with hypoxia -Labs and imaging review significant for CTA showing bronchiectasis with inflammatory nodule in the left lower lobe. Recommendation was to do a follow- up CT scan in 6 months. Patient found to be hypoxic on 2 L currently. She is not on any home oxygen. Treat empirically for pneumonia. CXR in 6 weeks -Stable switch Rocephin and azithromycin to po. -Failed walk test request home oxygen Hypotension -Improved with fluid bolus. Clinically patient does not look toxic and seems to be improving. -I am suspecting that this may be due her pain medication which was restarted will monitor. COPD exacerbation -Scheduled nebulization and steroids. Increase activity as tolerated . Op f/u with pulmonary chronic pain syndrome/anxiety disorder -continue with home medication DVT prophylaxis -SCD and OOB - Time Spent with Patient Total time spent providing and/or coordinating discharge services: Greater than 30 minutes - Quality: VTE Deep Vein Thrombosis/Pulmonary Embolism Present on Admission: No Exam Vital signs: Vital Signs 01/11/18 16:00 01/11/18 18:00 01/11/18 20:00 Temperature 97.8 F Pulse Rate 66 64 72 Respiratory Rate 23 20 18 Blood Pressure 173/83 H 172/72 H 109/61 Pulse Oximetry 93 L 96 96 Pulse Oximetry [Resting on Room Air] Pulse Oximetry [Resting with Oxygen] 01/11/18 20:06 01/12/18 00:00 01/12/18 01:00 Temperature Pulse Rate 71 68 Respiratory Rate 16 19 4 L Blood Pressure 122/70 Pulse Oximetry 94 L 91 L Pulse Oximetry [Resting on Room Air] Pulse Oximetry [Resting with Oxygen] 01/12/18 04:00 01/12/18 07:45 01/12/18 08:00 Temperature 98.3 F 98.3 F Pulse Rate 70 72 Respiratory Rate 20 21 Blood Pressure 111/60 113/69 Pulse Oximetry 96 93 L Pulse Oximetry [Resting on Room Air] 86 L Pulse Oximetry [Resting with Oxygen] 93 L 01/12/18 08:23 01/12/18 11:30 Temperature Pulse Rate 58 L Respiratory Rate 19 Blood Pressure Pulse Oximetry 93 L Pulse Oximetry [Resting on Room Air] Pulse Oximetry [Resting with Oxygen] Intake & Output 01/11/18 01/12/18 01/12/18 18:59 06:59 18:59 Intake Total 3210 / 3210 100 / 100 250 / 250 Output Total 1100 / 1100 1100 / 1100 Balance 3210 / 3210 -1000 / -1000 -850 / -850 Weight 86.1 kg Intake: IV 2250 / 2250 100 / 100 250 / 250 Azithromycin Inj 250 MG In NS 250 / 250 250 / 250 Inj 250 ML @ 250 mls/hr IV.SIG Q24H [facility] Rx#:[id number] NS Inj 1,000 ML @ Wide Open IV. 1999 / 1999 SIG BOLUS [facility] Rx#:[id number] Rocephin Inj 1,000 MG In NS Inj 100 / 100 100 ML @ 200 mls/hr IV.SIG Q24H [facility] Rx#:[id number] Oral 960 / 960 Output: Urine 1100 / 1100 1100 / 1100 Other: # Voids 4 Date of Last Bowel Movement 01/04/18 01/05/18 01/05/18 Narrative: GENERAL: Well-developed and well-nourished on nasal cannula SKIN: Warm and dry. CARDIOVASCULAR: Regular rate and rhythm. RESPIRATORY: No accessory muscle use. Scattered rhonchi. Breath sounds equal bilaterally. GASTROINTESTINAL: Abdomen soft, non-tender, nondistended. MUSCULOSKELETAL: Extremities without clubbing, cyanosis, or edema. No obvious deformities. NEUROLOGICAL: Awake and alert. No obvious cranial nerve deficits. Motor grossly within normal limits. Five out of 5 muscle strength in the arms and legs. Normal speech. PSYCHIATRIC: Appropriate mood and affect; insight and judgment normal. Results Procedures completed during hospitalization: none Labs on day of discharge: Labs from last 24 hours 01/12/18 01/12/18 04:28 04:28 WBC 4.8 RBC 3.47 L Hgb 11.6 Hct 35.0 MCV 100.9 H MCH 33.5 MCHC 33.2 RDW 13.3 Plt Count 177 MPV 6.9 L Sodium 144 Potassium 3.9 Chloride 112 H Carbon Dioxide 24.3 Anion Gap 8 BUN 9 Creatinine 0.49 L Estimated GFR Greater than 89 Random Glucose 78 Calcium 7.8 L Preliminary micro results at discharge 01/10/18 06:25 Aerobic Blood Culture - Preliminary Blood - Peripheral No growth in 2 days Anaerobic Blood Culture - Preliminary No growth in 2 days 01/10/18 06:30 Aerobic Blood Culture - Preliminary Blood - Peripheral No growth in 2 days Anaerobic Blood Culture - Preliminary No growth in 2 days - Impressions ITS Impressions Ribs X-Ray 01/10/18 05:47 CONCLUSION: Interstitial prominence and probable small bilateral effusions. No evidence of rib fracture Chest CTA 01/10/18 06:58 CONCLUSION: Examination of the pulmonary vasculature demonstrates good filling of the main, lobar and segmental branches. There are no filling defects to suggest pulmonary embolism. Multiplanar reconstructions are also unremarkable. Bronchiectasis left lower lobe with probable inflammatory nodule left base. Followup CT scan in 6 months is recommended. Discharge Plan - Discharge Disposition Patient Disposition: /Home Health Service - Discharge Condition Condition: Stable - Discharge Order Discharge Orders: Discharge Order (Routine); Ordered 01/12/18 Ordered By: Alejo Boudreaux - Physicians Team Primary Care Provider: Tiera Mckinnon Attending Provider: Alejo Boudreaux
[2018-01-12 14:57] VITALS: BP 106/74; PULSE 66; RESP 14; O2SAT 91
== END 2018-01-12 17:15 | disposition home health service (06) ==
LOC: PHED 05:44 → PHEDA 08:34 → PHICU 09:36
PROVIDERS: ADMIT Internal Medicine; ATTEND Internal Medicine